=== PATIENT | female | born 1950 | race Caucasian/White ===

== ENCOUNTER → 2016-07-27 | Outpatient (CLI) | payer MEDICARE ==
[~2016-07-27] MED LIST: ATOR40TA PO; ATOR40TA16 PO; CALCCHW25 PO; CALCTAB80 PO; LOSA25TA PO; LOSA50TA PO; MULT-135 PO; OCUVTAB4 PO
--- NOTE | 2016-07-31 16:05 | RADRPT ---
EXAM DATE/TIME: 07/27/2016 00:00 [facility] COMPARISON: No previous studies available for comparison. OUTSIDE STUDY REVIEWED: Abdomen MRI dated 07/19/2016, chest CT dated 07/16/2016, and chest CT dated 09/27/2015. INDICATIONS : Request for left adrenal gland mass biopsy. FINDINGS: The outside examinations documented a 2.5 cm left adrenal gland mass that is new when compared t o the [address] The MRI imaging findings are not diagnostic of an adenoma. It demonstrates solid vascularized tissue. This could represent a primary adrenal gland mass or metastatic lesion. CONCLUSION: Prior to performing biopsy, recommend obtaining a serum or urine metanephrines to exclude the possibi lity of pheochromocytoma. An immediate hypertensive crisis can occur if these are biopsied. Once pheo chromocytoma is excluded, the patient may be scheduled for percutaneous CT-guided biopsy of the mass. Michael Raygoza MD on July 31, 2016 at 15:58 Board Certified Radiologist. This report was verified electronically.
== END ==
LOC: HRAD 11:45
PROVIDERS: ATTEND Internal Medicine Hematology & Oncology
DX: E27.8 Other specified disorders of adrenal gland (principal)
CPT/HCPCS: 76140

== ENCOUNTER 2016-08-14 08:00 | Day surgery (SDC) | payer MEDICARE ==
[2016-08-14] VITALS (7 sets, daily range): BP systolic 81–101; BP diastolic 41–66; PULSE 51–67; RESP 16–20; TEMP 97.5–97.8; O2SAT 95–100
[~2016-08-14] VITALS: Ht 165.1 cm; Wt 63.6 kg
[~2016-08-14 08:00] MED LIST changes: -ATOR40TA16 PO; -CALCTAB80 PO; -LOSA25TA PO; -MULT-135 PO
[2016-08-14] MEDS ORDERED: fentaNYL CITRATE 250 MCG/5 ML AMP ONE (08:22)
[2016-08-14] MEDS ORDERED: MIDAZOLAM HCL 5 MG/5 ML VIAL ONE (08:22)
[2016-08-14] MEDS ORDERED: MULT-135 PO (08:27)
[2016-08-14] MEDS ORDERED: OCUVTAB4 PO (08:27)
[2016-08-14] MEDS ORDERED: LOSA25TA PO (08:27)
[2016-08-14] MEDS ORDERED: CALCTAB80 PO (08:27)
[2016-08-14] MEDS ORDERED: ATOR40TA16 PO (08:27)
[2016-08-14] MEDS ORDERED: SODIUM CHLOR 0.9% 1000 ML IV SCH (08:45)
[2016-08-14] MEDS ORDERED: LIDOCAINE 1%/EPINEPHrine 1:100,000 SOLN 20 ML VIAL ONE (09:11)
--- NOTE | 2016-08-14 15:15 | RADRPT ---
EXAM DATE/TIME: 08/14/2016 09:40 [facility] COMPARISON: No previous studies available for comparison. INDICATIONS : Left adrenal mass. SEDATION TIME: 50 minutes BIOPSY SITE: Left MEDICATION(S): 1.) 4 mg midazolam (Versed) IV 2.) 225 mcg fentanyl (Sublimaze) IV DEVICE(S): 1.) 20 gauge Temno core biopsy needle MEDICAL HISTORY : Carcinoma, lung. SURGICAL HISTORY : None. ENCOUNTER: Initial ACUITY: 1 day PAIN SCORE: 0/10 LOCATION: Left upper quadrant A total of two core specimen(s) were obtained and sent to the laboratory for pathologic evaluation. PROCEDURE: 1. CT guided adrenal, left biopsy. 2. Conscious sedation with continuous EKG and oximetry monitoring. 3. EKG and oximetry remained stable throughout the procedure. Prior to the procedure informed consent was obtained. Any appropriate prior imaging studies were rev iewed. Using automated exposure control and adjustment of the mA and/or kV according to patient size, radiat ion dose was kept as low as reasonably achievable to obtain optimal diagnostic quality images. The site was prepped in a sterile fashion. Full sterile technique was used, including cap, mask, saúl rile gloves and gown and a large sterile sheet. Hand hygiene and 2% chlorhexidine and/or betadine/al cohol prep was utilized per protocol for cutaneous antisepsis. The skin and subcutaneous tissues wer e infiltrated with local anesthetic solution. With CT guidance the previously identified target was localized. Biopsy was performed using the presc ribed needle as above. Adequate hemostasis was obtained with compression at the puncture site. Follow-up CT scan reveals no hemorrhage. The patient tolerated the procedure well and there were no complications. The patient was returned to the Radiology Outpatient Unit in stable condition. CONCLUSION: Uncomplicated CT guided biopsy. Shan Coulter MD on August 14, 2016 at 15:12 Board Certified Radiologist. This report was verified electronically.
== END 2016-08-14 13:35 | disposition home or self-care (01) ==
LOC: HRAD 08:00 → HRIP 08:01 → HRAD 13:35
PROVIDERS: ATTEND Internal Medicine Hematology & Oncology
DX: C79.72 Secondary malignant neoplasm of left adrenal gland (principal); C34.90 Malignant neoplasm of unspecified part of unspecified bronchus or lung; I25.10 Atherosclerotic heart disease of native coronary artery without angina pectoris; E78.00 Pure hypercholesterolemia, unspecified; I10 Essential (primary) hypertension
CPT/HCPCS: 60699; 77012; 88305; 88341; 88342; 99152; 99153; J2250; J3010; J7030

== ENCOUNTER 2016-10-16 08:33 | Day surgery (SDC) | payer MEDICARE ==
[~2016-10-16] VITALS: Ht 162.6 cm; Wt 63.6 kg
[~2016-10-16 08:33] MED LIST changes: -ATOR40TA PO; +ATOR40TA16 PO; -CALCCHW25 PO; +CALCTAB80 PO; +LOSA25TA PO; -LOSA50TA PO; +MULT-135 PO
[2016-10-16 08:54] VITALS: BP 121/69; PULSE 56; RESP 20; TEMP 98; O2SAT 99
[2016-10-16] MEDS ORDERED: SODIUM CHLORIDE 0.9% 1000 ML IV SCH (09:15)
[2016-10-16] MEDS ORDERED: POVIDONE IODINE 5% (ANTISEPSIS KIT) 4 APPLICATIONS EACH NARE SCH (09:15)
[2016-10-16] MEDS ORDERED: ceFAZolin 2 GM PREMIX 50 ML - implanted port/tunneled catheter insertion IV SCH (09:15)
[2016-10-16] MEDS ORDERED: CHLORHEXIDINE GLUCONATE 2 % 1 PACK (2 CLOTHS) TOPICAL SCH (09:15)
[2016-10-16] MEDS ORDERED: VANCOMYCIN 1000 MG/NS 250 ML - implanted port/tunneled catheter IV SCH ×2 (09:15)
[2016-10-16 09:30] LABS: INTERNATIONAL NORMALIZED RATIO 0.9 RATIO
[2016-10-16 09:35] LABS: BASOPHIL % 1.1 % (0.0-2.0); EOSINOPHIL # 0.2 TH/MM3 (0-0.4); EOSINOPHIL % 6.6 % (0.0-4.0); HEMATOCRIT 34.7 % (35.0-46.0); HEMO FLAGS DIFF FINAL; LYMPH % 13.4 % (9.0-44.0); LYMPHOCYTE # 0.4 TH/MM3 (1.0-4.8); MEAN CELL VOLUME 90.8 FL (80.0-100.0); MEAN CORPUSCULAR HEMOGLOBIN 31.5 PG (27.0-34.0); MEAN CORPUSCULAR HGB CONC 34.6 % (32.0-36.0); MONO % 18.7 % (0.0-8.0); NEUT % 60.2 % (16.0-70.0); PLATELET COUNT 200 TH/MM3 (150-450); RED BLOOD COUNT 3.82 MIL/MM3 (4.00-5.30); RED CELL DISTRIBUTION WIDTH 14.2 % (11.6-17.2); WHITE BLOOD COUNT 3.4 TH/MM3 (4.0-11.0)
[2016-10-16] MEDS ORDERED: LIDOCAINE 1%/EPINEPHrine 1:100,000 SOLN 20 ML VIAL ONE (10:47)
[2016-10-16] MEDS ORDERED: fentaNYL CITRATE 250 MCG/5 ML AMP ONE (10:52)
[2016-10-16] MEDS ORDERED: MIDAZOLAM HCL 5 MG/5 ML VIAL ONE (10:52)
[2016-10-16 11:50] VITALS: BP 101/52; PULSE 56; RESP 16; TEMP 98.4; O2SAT 92
--- NOTE | 2016-10-16 11:50 | PD.RAD ---
Post Procedure Progress Note Pre Procedure Diagnosis: (1) Lung cancer Post Procedure Diagnosis: (1) Lung cancer Procedure Date: October 16, 2016 Supervising Radiologist: Hernandez Lima JR Proceduralist/Assist: Laly Nunez, RT(R)(CV), Saida Lagunas RT(R)() Anesthesia: Conscious Sedation Plan of Activity Patient to Unit: ROPU Patient Condition: Good See PACS Report for procedural detail/treatment Central Venous Access Device Procedure 1 Right Internal Jugular Infusaport Placement single lumen Croatian: 8 Findings: Power port in good position and functions well. OK to use. Plan OK to use. F/U in 10-14 days with IR for a site check Jr. Clarence,Hernandez Lucero MD October 16, 2016 11:50
[2016-10-16] MEDS ORDERED: SODIUM CHLORIDE 0.9% FLUSH 10 ML FLUSH IVF PRN (12:00)
[2016-10-16 12:05] VITALS: BP 92/54; PULSE 52; RESP 16; O2SAT 92
[2016-10-16 12:25] VITALS: BP 107/58; PULSE 59; RESP 16; O2SAT 97
--- NOTE | 2016-10-16 12:59 | RADRPT ---
EXAM DATE/TIME: 10/16/2016 11:32 [facility] COMPARISON: No previous studies available for comparison. INDICATIONS : Patient with history of lung cancer in need of port placement. MEDICAL HISTORY : 1.Lung cancer 2.HTN 3.Adrenal gland cancer 4.High cholesterol 5.Skin cancer 6.Angina 7.Anxiety SURGICAL HISTORY : 1.Eyelid surgery 2.Right thumb surgery 3.Right port removal/placement ENCOUNTER: Initial ACUITY: 1 month PAIN SCORE: 0/10 FLUORO TIME: 0.3 minutes IMAGE SERIES: 0 SEDATION TIME: 45 minutes ACCESS: Right internal jugular vein SEDATION: 1.) 4.5 mg midazolam (Versed) IV 2.) 225 mcg fentanyl (Sublimaze) IV Prophylactic antibiotics were administered with appropriate pre-procedure timing. Vancomycin within 2 hours of procedure, Ancef (or alternative) within 1 hour of procedure. DEVICE: 1. 8 Malian single lumen Angiodynamics Smart port [id number] PROCEDURE : 1. Continuous pulse oximetry and EKG monitoring. 2. Intravenous conscious sedation. 3. Ultrasound guidance for venous access. 4. Fluoroscopic guided implantable central venous port placement. The patient was placed supine. The neck was prepped in sterile fashion. Full sterile technique was u sed, including cap, mask, sterile gloves and gown, and a large sterile sheet. Hand hygiene and 2% ch lorhexidine Betadine was utilized per protocol for cutaneous antisepsis with appropriate dry time for site. The skin and subcutaneous tissues were infiltrated with local anesthetic solution. Under direct ultrasound guidance, central venous access was accomplished in the targeted vessel. The ultrasound images depicting access guidance were stored and saved to PACS for permanent record. A s ubcutaneous pocket was created using blunt dissection. The port was introduced to the pocket. The c atheter tubing was fed through a subcutaneous tunnel to the venotomy site. The catheter tubing was c ut to a suitable length and then was introduced through a valved Peel-Away sheath and positioned with catheter tubing tip at the cavo-atrial junction level. The pocket incision was closed with subcutic ular Vicryl suture. Steri-Strips were applied. The port was flushed and locked with heparin solutio n per protocol. Sterile dressing was applied to the site. The patient tolerated the procedure well. Conscious sedation was performed with the prescribed dosages and duration as above in the presence of an independent trained radiology nurse to assist in the monitoring of the patient. EKG and oximetry remained stable throughout the procedure. The patient tolerated the procedure well and there were no complications. The patient was sent to post anesthesia recovery in stable condition. CONCLUSION: Uncomplicated ultrasound and fluoroscopic guided implanted central venous port catheter placement as described in detail above. An 8 Malian Power port was placed. Hernandez Lima Jr., MD on October 16, 2016 at 12:56 Board Certified Radiologist. This report was verified electronically.
[2016-10-16 13:00] VITALS: BP_SYST 108; BP_SYST 123; BP_DIAS 58; BP_DIAS 72; PULSE 45; PULSE 48; RESP 18; O2SAT 98; O2SAT 99
[2016-10-16 14:00] VITALS: BP 101/63; PULSE 47; RESP 16; O2SAT 98
== END 2016-10-16 14:40 | disposition home or self-care (01) ==
LOC: HRIP 08:33 → HROP 08:33
PROVIDERS: ATTEND Internal Medicine Hematology & Oncology
DX: C34.90 Malignant neoplasm of unspecified part of unspecified bronchus or lung (principal); C79.72 Secondary malignant neoplasm of left adrenal gland; I10 Essential (primary) hypertension; E78.00 Pure hypercholesterolemia, unspecified; F41.9 Anxiety disorder, unspecified; Z85.828 Personal history of other malignant neoplasm of skin; Z85.858 Personal history of malignant neoplasm of other endocrine glands; Z88.5 Allergy status to narcotic agent
CPT/HCPCS: 36561; 76937; 77001; 85025; 85610; 85730; 99152; 99153; C1788; J0690; J1642; J2250; J3010; J3370; J7030; J7050

== ENCOUNTER 2017-11-03 19:54 | Observation (INO) | payer MEDICARE ==
[~2017-11-03] VITALS: Ht 162.6 cm; Wt 65.8 kg
[2017-11-03] VITALS (11 sets, daily range): BP systolic 90–119; BP diastolic 57–86; PULSE 107–176; RESP 18; TEMP 98.4; O2SAT 96–97
--- NOTE | 2017-11-03 20:01 | PD ---
HPI Chief Complaint: Cardiac Complaint Time Seen by Provider: 19:57 Travel History International Travel<30 days: No Contact w/Intl Traveler<30days: No Traveled to known affect area: No History of Present Illness HPI Complaint of chest pain along with palpitations. Palpitations are irregular and fast. The chest pain is pressure-like substernal nonradiating about a 3 out of 10. PCP IS MEDARDO UNDERWOOD Allergy to codeine Past medical history significant for hypertension lung cancer apparently has coronary artery disease(angina) as per chart review back in 2016, high cholesterol.... Per evaluation Dr. Rogers recorded that this patient has metastatic non-small cell Lung cancer on palliative therapy with nIVOLUMAB every 2 weeks. PFSH Past Medical History Cancer: Yes (SKIN, LUNG CANCER LEFT LOBE + LYMPH NODE ) Cardiovascular Problems: Yes (CALCIFICATIONS) Chemotherapy: Yes (IN PAST) Coronary Artery Disease: Yes Diabetes: No Endocrine: No Gastrointestinal Disorders: No Genitourinary: No Hepatitis: No Hiatal Hernia: No Hypertension: Yes Immune Disorder: No Musculoskeletal: No Neurologic: No Psychiatric: No Reproductive: No Respiratory: Yes (LUNG CANCER ) Thyroid Disease: No Menopausal: Yes Past Surgical History Abdominal Surgery: No AICD: No Body Medical Devices: NONE Cardiac Surgery: No Ear Surgery: No Endocrine Surgery: No Eye Surgery: Yes (BILATERAL UPPER BLEPH ) Genitourinary Surgery: No Gynecologic Surgery: No Joint Replacement: No Neurologic Surgery: No Oral Surgery: No Pacemaker: No Thoracic Surgery: No Other Surgery: Yes (RIGHT CHEST PORT) Social History Alcohol Use: No (2-3 MIXED DRINKS/NIGHT; 2-3 MIXED DRINKS 03/27/16) Tobacco Use: No (QUIT 2002) Substance Use: No Allergies-Medications (Allergen,Severity, Reaction): Coded Allergies: codeine (Unverified Adverse Reaction, Mild, PASSED OUT, 11/03/17) Reported Meds & Prescriptions Reported Meds & Active Scripts Active Reported Eliquis (Apixaban) 5 Mg Tab 5 Mg PO BID Preservision Areds (Multiple Vitamins W/ Minerals) 1 Tab 1 Tab PO DAILY Losartan (Losartan Potassium) 25 Mg Tab 25 Mg PO DAILY Calcium 1000 + D (Calcium Carbonate-Cholecalciferol) 1,000-800 Mg-Unit Tab 1 Tab PO Atorvastatin (Atorvastatin Calcium) 40 Mg Tab 40 Mg PO HS Physical Exam Narrative GENERAL: SKIN: Warm and dry. HEAD: Atraumatic. Normocephalic. EYES: Pupils equal and round. No scleral icterus. No injection or drainage. ENT: No nasal bleeding or discharge. Mucous membranes pink and moist. NECK: Trachea midline. No JVD. CARDIOVASCULAR: Tachycardic rate, irregularly irregular rhythm RESPIRATORY: No accessory muscle use. Clear to auscultation. Breath sounds equal bilaterally. GASTROINTESTINAL: Abdomen soft, non-tender, nondistended. MUSCULOSKELETAL: Extremities without clubbing, cyanosis, or edema. No obvious deformities. NEUROLOGICAL: Awake and alert. No obvious cranial nerve deficits. Motor grossly within normal limits. Five out of 5 muscle strength in the arms and legs. Normal speech. PSYCHIATRIC: Appropriate mood and affect; insight and judgment normal. Data Data Last Documented VS Vital Signs Date Time Temp Pulse Resp B/P (MAP) Pulse Ox O2 Delivery O2 Flow Rate FiO2 11/03/17 22:00 126 18 110/86 (94) 97 Room Air 11/03/17 20:15 98.4 Orders Orders Electrocardiogram (11/03/17 20:02) B-Type Natriuretic Peptide (11/03/17 20:02) Ckmb (Isoenzyme) Profile (11/03/17 20:02) Complete Blood Count With Diff (11/03/17 20:02) Comprehensive Metabolic Panel (11/03/17 20:02) Magnesium (Mg) (11/03/17 20:02) Prothrombin Time / Inr (Pt) (11/03/17 20:02) Act Partial Throm Time (Ptt) (11/03/17 20:02) Troponin I (11/03/17 20:02) Lipase (11/03/17 20:02) Chest, Single Ap (11/03/17 20:02) Ecg Monitoring (11/03/17 20:02) Iv Access Insert/Monitor (11/03/17 20:02) Oximetry (11/03/17 20:02) Oxygen Administration (11/03/17 20:02) Sodium Chloride 0.9% Flush (Ns Flush) (11/03/17 20:15) Metoprolol Tartrate Inj (Lopressor Inj) (11/03/17 20:15) Dextrose 5% In Wate... W/Amiodarone Inj (11/03/17 21:04) Labs Laboratory Tests Test 11/03/17 20:05 White Blood Count 4.3 TH/MM3 Red Blood Count 4.23 MIL/MM3 Hemoglobin 12.5 GM/DL Hematocrit 38.0 % Mean Corpuscular Volume 89.8 FL Mean Corpuscular Hemoglobin 29.5 PG Mean Corpuscular Hemoglobin Concent 32.8 % Red Cell Distribution Width 12.3 % Platelet Count 220 TH/MM3 Mean Platelet Volume 6.9 FL Neutrophils (%) (Auto) 50.9 % Lymphocytes (%) (Auto) 25.7 % Monocytes (%) (Auto) 19.1 % Eosinophils (%) (Auto) 3.7 % Basophils (%) (Auto) 0.6 % Neutrophils # (Auto) 2.2 TH/MM3 Lymphocytes # (Auto) 1.1 TH/MM3 Monocytes # (Auto) 0.8 TH/MM3 Eosinophils # (Auto) 0.2 TH/MM3 Basophils # (Auto) 0.0 TH/MM3 CBC Comment DIFF FINAL Differential Comment Prothrombin Time 10.7 SEC Prothromb Time International Ratio 1.1 RATIO Activated Partial Thromboplast Time 29.5 SEC Blood Urea Nitrogen 21 MG/DL Creatinine 0.79 MG/DL Random Glucose 81 MG/DL Total Protein 7.4 GM/DL Albumin 3.5 GM/DL Calcium Level 9.2 MG/DL Magnesium Level 1.7 MG/DL Alkaline Phosphatase 109 U/L Aspartate Amino Transf (AST/SGOT) 22 U/L Alanine Aminotransferase (ALT/SGPT) 27 U/L Total Bilirubin 0.2 MG/DL Sodium Level 141 MEQ/L Potassium Level 3.5 MEQ/L Chloride Level 107 MEQ/L Carbon Dioxide Level 26.7 MEQ/L Anion Gap 7 MEQ/L Estimat Glomerular Filtration Rate 72 ML/MIN Total Creatine Kinase 40 U/L Troponin I LESS THAN 0.02 NG/ML B-Type Natriuretic Peptide 77 PG/ML Lipase 80 U/L MDM Medical Decision Making Medical Screen Exam Complete: Yes Emergency Medical Condition: Yes Medical Record Reviewed: Yes Interpretation(s) EKG shows atrial fib relation with RVR, rate approximately in the 160s, LVH changes noted, no ST elevation VA pattern noted. ST depressions noted inferior laterally Differential Diagnosis Pneumonia versus pleural effusion versus pulmonary edema versus STEMI versus non -STEMI versus dehydration versus anemia Narrative Course CBC is within normal limits and without any evidence of anemia, leukocytosis or left shift. Normal platelet count Coagulation profile is within normal limits Electrolytes are within normal limits, normal kidney liver and pancreatic functions. First set of cardiac enzymes negative Diagnosis Primary Impression: REFRACTORY Atrial FIBRILLATION WITH RVR Admitting Information Admitting Physician Requests: Observation Shahab Villegas MD Nov 03, 2017 20:01
[2017-11-03 20:12] LABS: AUTOMATED NEUTROPHIL # 2.2 TH/MM3 (1.8-7.7); BASOPHIL % 0.6 % (0.0-2.0); EOSINOPHIL # 0.2 TH/MM3 (0-0.4); EOSINOPHIL % 3.7 % (0.0-4.0); HEMOGLOBIN 12.5 GM/DL (11.6-15.3); LYMPH % 25.7 % (9.0-44.0); LYMPHOCYTE # 1.1 TH/MM3 (1.0-4.8); MEAN CELL VOLUME 89.8 FL (80.0-100.0); MEAN CORPUSCULAR HEMOGLOBIN 29.5 PG (27.0-34.0); MEAN CORPUSCULAR HGB CONC 32.8 % (32.0-36.0); MEAN PLATELET VOLUME 6.9 FL (7.0-11.0); MONO % 19.1 % (0.0-8.0); MONOCYTE # 0.8 TH/MM3 (0-0.9); NEUT % 50.9 % (16.0-70.0); PLATELET COUNT 220 TH/MM3 (150-450); RED BLOOD COUNT 4.23 MIL/MM3 (4.00-5.30); RED CELL DISTRIBUTION WIDTH 12.3 % (11.6-17.2); WHITE BLOOD COUNT 4.3 TH/MM3 (4.0-11.0)
[2017-11-03] MEDS: METOPROLOL TARTRATE 5 MG/5 ML VIAL IVS SCH ×3 (20:12→20:34)
[2017-11-03] MEDS ORDERED: SODIUM CHLORIDE 0.9% FLUSH 10 ML FLUSH IVF PRN ×2 (20:15→22:30)
[2017-11-03 20:18] LABS: CHLORIDE 107 MEQ/L (98-107); SODIUM (NA) 141 MEQ/L (136-145)
[2017-11-03 20:22] LABS: CALCIUM 9.2 MG/DL (8.5-10.1)
[2017-11-03 20:23] LABS: ALBUMIN 3.5 GM/DL (3.4-5.0); BICARBONATE 26.7 MEQ/L (21.0-32.0); BLOOD UREA NITROGEN 21 MG/DL (7-18); GLUCOSE,RANDOM 81 MG/DL (74-106); MAGNESIUM 1.7 MG/DL (1.5-2.5)
[2017-11-03 20:24] LABS: INTERNATIONAL NORMALIZED RATIO 1.1 RATIO; PROTHROMBIN TIME - PATIENT 10.7 SEC (9.8-11.6)
[2017-11-03 20:25] LABS: ALT (GPT) 27 U/L (10-53); AST (GOT) 22 U/L (15-37); CREATININE 0.79 MG/DL (0.50-1.00); GLOMERULAR FILTRATION RATE 72 ML/MIN (>89)
[2017-11-03 20:27] LABS: TOTAL BILIRUBIN ADULT 0.2 MG/DL (0.2-1.0); TOTAL PROTEIN 7.4 GM/DL (6.4-8.2)
[2017-11-03 20:28] LABS: ALKALINE PHOSPHATASE 109 U/L (45-117)
[2017-11-03 20:31] LABS: TROPONIN I LESS THAN 0.02 NG/ML (0.02-0.05)
[2017-11-03] MEDS ORDERED: APIX5TAB PO (20:31)
[2017-11-03] MEDS ORDERED: AMIODARONE INJ 150 MG in DEXTROSE 5% IN WATER 100ML INJ 97 ML IV ONE ×2 (21:04)
--- NOTE | 2017-11-03 21:23 | RADRPT ---
EXAM DATE: 11/03/2017 9:12 PM EDT AGE/SEX: 67 years / Female INDICATIONS: Heart palpitations CLINICAL DATA: This is the patient's initial encounter. Patient reports that signs and symptoms have been present for 1 day and indicates a pain score of 2/10. MEDICAL/SURGICAL HISTORY: Carcinoma, lung. Carcinoma, bone. . Infusaport COMPARISON: [facility] [place] NEEDLE BIOPSY LUNG, LEFT, 02/15/2014. . FINDINGS: Right internal jugular [id number] has its tip in the superior vena cava. No pneumothorax is noted. The heart and mucous structures are stable. The lungs are clear. CONCLUSION: 1. No focal infiltrate or pulmonary vascular congestion. 2. No significant change compared to previous examination. Electronically signed by: Rony Norris MD 11/03/2017 9:22 PM EDT
[2017-11-03] MEDS ORDERED: AMIODARONE INJ 450 MG in DEXTROSE 5% IN WATE(EXCEL) INJ 241 ML IV SCH ×2 (22:35)
[2017-11-03] MEDS: AMIODARONE INJ 450 MG in SODIUM CHLOR 0.9% 250 ML INJ 241 ML IV SCH (23:06)
[2017-11-03 23:15] LABS: TROPONIN I LESS THAN 0.02 NG/ML (0.02-0.05)
[2017-11-04] VITALS (30 sets, daily range): BP systolic 93–132; BP diastolic 60–92; PULSE 52–130; RESP 9–31; TEMP 97.6–98.2; O2SAT 94–97
[2017-11-04] MEDS ORDERED: CHLORHEXIDINE GLUCONATE 2 % 1 PACK (2 CLOTHS)(extra cloths) TOPICAL PRN (00:15)
[2017-11-04] MEDS ORDERED: CHLORHEXIDINE GLUCONATE 2 % 1 PACK (2 CLOTHS)(taper/protocol) TOPICAL SCH (04:00)
[2017-11-04 05:00] LABS: TROPONIN I LESS THAN 0.02 NG/ML (0.02-0.05)
[2017-11-04] MEDS ORDERED: DILTIAZEM HCL 60 MG TAB PO SCH (06:15)
--- NOTE | 2017-11-04 07:31 | MH ---
cc: Sunny Bassett MD DATE OF ADMISSION: 11/03/2017 DATE OF DICTATION AND EXAM: 11/04/2017 ADMISSION DIAGNOSES: 1. Atrial fibrillation with rapid ventricular response. 2. Hypertension. 3. Hyperlipidemia. 4. History of metastatic adenocarcinoma of the lung. 5. History of colon polyps. PERTINENT HISTORY: This is a pleasant 67-year-old white female who, last week, was diagnosed by her customer care associate, Dr. Oshea, as having atrial fibrillation and put on Eliquis. She has been having some palpitations. She came to the ER last night when she had palpitations and her heart was beating fast. She has an gagandeep on her phone that monitors her pulse rate, and it was going into the 170s and irregular. She denies any chest pain to me, but in the ER, she did mention to the ER physician that she had some chest-like pressure, but it seemed to be mainly when her heart rate was going fast. She denies any chest pain now. No shortness of breath. She was not put on any rate-controlling medication by her customer care associate last week. She has no current symptoms or complaints. PAST MEDICAL HISTORY: She is under treatment for hypertension and hyperlipidemia. She is followed by Dr. Rogers for cancer of the lung that has metastasized; apparently it has previously metastasized to the adrenal gland on the left side, and she had radiation of that. She has had metastasis to lymph nodes and also apparently to bone. She was originally diagnosed with lung cancer of the left upper lobe, and when a biopsy was done on 02/15/2014, she had some chemo and radiation therapy initially. She has been on maintenance nivolumab. She denies any history of heart attack, angina, stroke, seizures. No asthma, TB, COPD. No liver or kidney disease. She has had colon polyps removed. She has had a duodenal ulcer in the past and has had gastritis. PAST SURGICAL HISTORY: She has had bilateral blepharoplasty. She had colonoscopies done. She has had some basal cell carcinomas removed from the skin. ALLERGIES: CODEINE. MEDICATIONS: She is on Eliquis 5 mg twice a day, losartan 25 mg a day, atorvastatin 40 mg a day. She takes calcium plus D. She is on AREDS for her eyes. FAMILY HISTORY: Her mother is living at 91, has had a prior heart attack, hypertension, hyperlipidemia. She did not really know her father. SOCIAL HISTORY: She is single, never . She has 2-3 drinks a day, either vodka or wine. She quit smoking in 2003, smoked a pack a day for 30 years. She is retired, used to work in IT. REVIEW OF SYSTEMS: GENERAL: No fever or chills. HEENT: No double vision. No sore throat. She has had a little slight runny nose recently. CARDIOVASCULAR: As mentioned. PULMONARY: No cough, hemoptysis or wheezing. GASTROINTESTINAL: No nausea, vomiting, abdominal pain, constipation, or diarrhea. No rectal bleeding. GENITOURINARY: No dysuria, urgency, frequency or hematuria. EXTREMITIES: Without swelling. MUSCULOSKELETAL: Without complaints. NEUROLOGIC: No weakness, numbness, tingling in her arms and legs. PHYSICAL EXAMINATION: GENERAL: Pleasant white female in no acute distress. VITAL SIGNS: Her heart rate on the monitor has been ranging from about 105-120, respirations 16, BP 119/77, oximetry 96%. HEENT: Pupils are equal. Sclerae nonicteric. Nose without lesion. Mouth without inflammation or lesion. NECK: Without bruit. No JVD. CARDIOVASCULAR: Irregularly irregular rhythm with just slight tachycardia. LUNGS: Clear. ABDOMEN: Soft, nontender. No masses. EXTREMITIES: No edema. Pulses are palpated in the feet. SKIN: Negative. NEUROLOGIC: Oriented x3. Cranial nerves, motor and sensory intact. LABORATORY DATA: White count is 4.3, hemoglobin 12.5, platelets are 220,000. Her troponins have been less than 0.02 on 3 checks. Her CK was normal. Her sodium was 141, potassium 3.5, BUN 21, creatinine 0.79, GFR 72, glucose 81. AST, ALT, bilirubin, calcium and magnesium were normal. Lipase normal. Albumin and total protein normal. Chest x-ray showed no infiltrate or pulmonary vascular congestion. bus monitor shows atrial fibrillation. ASSESSMENT: As noted. PLAN: She will be continued on Eliquis. She was put on some oral diltiazem 60 mg q. 6 hours. She was originally given amiodarone and metoprolol in the ED, and it was an amiodarone drip, which she is still on. Cardiology has been consulted, and pending their evaluation, if her rate can be controlled, then she may be able to go home later today. We will go ahead and order a 2-D echo on her. She will be maintained on her losartan and atorvastatin. MD ANGEL Lewis/LETITIA , 06:54 AM , 07:30 AM
[2017-11-04] MEDS ORDERED: APIXABAN 5 MG TABLET PO SCH ×2 (09:00)
[2017-11-04] MEDS ORDERED: MULTIVITAMIN-OPHTHALMIC 1 TAB PO SCH (09:00)
[2017-11-04] MEDS ORDERED: LOSARTAN 25 MG TAB PO SCH (09:00)
--- NOTE | 2017-11-04 09:51 | EKG ---
Date Performed: 11/03/2017 Time Performed: 20:01:52 PTAGE: 67 years EKG: ATRIAL FIBRILLATION WITH RAPID VENTRICULAR RESPONSE ST DEVIATION AND MODERATE T-WAVE ABNORM ALITY, CONSIDER INFERIOR ISCHEMIA Compared to previous tracing atrial fibrillation with rapid v. resp onse has replaced Sinus rhythm ABNORMAL ECG PREVIOUS TRACING : 02/11/2007 08.24 DOCTOR: Goldy Echeverria Interpretating Date/Time 11/04/2017 09:49:45
[2017-11-04 10:19] LABS: TROPONIN I LESS THAN 0.02 NG/ML (0.02-0.05)
--- NOTE | 2017-11-04 11:11 | ECHRPT ---
Indication: ATRIAL FIB/FLUTTER CONCLUSIONS Normal left ventricular size. Wall thickness is normal. Normal wall motion. The left ventricular systolic function normal with an estimated ejection fraction in the range of 5 0-55%. There is trace tricuspid valve regurgitation. The estimated pulmonary arterial pressure is 33 mmHg. BP: 119 / 77 HR: 106 Rhythm: Atrial fibrillation, Atrial flut ter MEASUREMENTS (Male / Female) Normal Values Technical Quality:Fair 2D ECHO LV Diastolic Diameter PLAX 4.6 cm 4.2 - 5.9 / 3.9 - 5.3 cm LV Systolic Diameter PLAX 3.6 cm IVS Diastolic Thickness 0.9 cm 0.6 - 1.0 / 0.6 - 0.9 cm LVPW Diastolic Thickness 0.9 cm 0.6 - 1.0 / 0.6 - 0.9 cm LV Relative Wall Thickness 0.4 RV Internal Dim ED PLAX 2.8 cm LVOT Diameter 1.8 cm Aortic Root Diameter 3.0 cm LA Systolic Diameter LX 2.9 cm 3.0 - 4.0 / 2.7 - 3.8 cm M-MODE AV Cusp Separation MM 1.7 cm DOPPLER AV Peak Velocity 96.5 cm/s AV Peak Gradient 3.7 mmHg AV Mean Gradient 2.0 mmHg AV Velocity Time Integral 19.3 cm LVOT Peak Velocity 75.9 cm/s LVOT Peak Gradient 2.3 mmHg LVOT Velocity Time Integral 15.7 cm LVOT Cardiac Index 2441.7 cm/minm AV Area Cont Eq vti 2.1 cm AV Area Cont Eq pk 2.0 cm Mitral E Point Velocity 77.0 cm/s Mitral A Point Velocity 66.6 cm/s Mitral E to A Ratio 1.2 LV E' Lateral Velocity 8.8 cm/s Mitral E to LV E' Lateral Ratio 8.8 LV E' Septal Velocity 5.9 cm/s Mitral E to LV E' Septal Ratio 13.2 TR Peak Velocity 243.0 cm/s TR Peak Gradient 23.6 mmHg Right Atrial Pressure 10.0 mmHg Pulmonary Artery Systolic Pressu 33.6 mmHg Right Ventricular Systolic Press 33.6 mmHg PV Peak Velocity 67.7 cm/s PV Peak Gradient 1.8 mmHg FINDINGS LEFT VENTRICLE Normal left ventricular size. Wall thickness is normal. Normal wall motion. The left ventricular systolic function normal with an estimated ejection fraction in the range of 5 0-55%. RIGHT VENTRICLE Normal right ventricular size and systolic function. LEFT ATRIUM The left atrial size is normal. RIGHT ATRIUM The right atrial size is normal. ATRIAL SEPTUM No atrial level shunt is demonstrated by color flow Doppler interrogation. AORTA The aortic root and proximal ascending aorta are not well visualized. MITRAL VALVE Trace mitral valve regurgitation. AORTIC VALVE Trileaflet aortic valve. No aortic valve stenosis or regurgitation. TRICUSPID VALVE There is trace tricuspid valve regurgitation. The estimated pulmonary arterial pressure is 33 mmHg. PULMONARY VALVE No pulmonary valve regurgitation or stenosis. VESSELS The inferior vena cava is normal in size. PERICARDIUM A prominent epicardial fat pad is present. No pericardial effusion. Peng Tobar MD (Electronically Signed) Final Date:04 November 2017 11:09
[2017-11-04] MEDS: AMIODARONE INJ 450 MG in SODIUM CHLOR 0.9% 250 ML INJ 241 ML IV SCH (11:37)
--- NOTE | 2017-11-04 12:18 | EKG ---
Date Performed: 11/04/2017 Time Performed: 04:31:07 PTAGE: 67 years EKG: ATRIAL FIBRILLATION WITH RAPID VENTRICULAR RESPONSE NONSPECIFIC ST & T-WAVE ABNORMALITY ABN ORMAL ECG PREVIOUS TRACING : 11/03/2017 20.01 Since the previous tracing, no significant change noted DOCTOR: Goldy Echeverria Interpretating Date/Time 11/04/2017 12:16:40
--- NOTE | 2017-11-04 13:04 | MB ---
cc: Florencia Hugo MD DATE: 11/04/2017 REASON FOR CONSULTATION: Atrial fibrillation. HISTORY OF PRESENT ILLNESS: Ms. Jones is a 67-year-old patient of my partner, Dr. Oshea. She was just diagnosed with atrial fibrillation last week. She had an episode last evening that brought her to the emergency room. The patient was placed on amiodarone and has subsequently converted back this morning. She is asymptomatic. ALLERGIES: CODEINE. OUTPATIENT MEDICATIONS: Include: 1. Eliquis. 2. PreserVision. 3. Losartan. 4. Calcium. 5. Atorvastatin. PAST MEDICAL HISTORY: Significant for metastatic non-small cell lung cancer, on palliative therapy, hypertension, hyperlipidemia, coronary artery disease with calcifications by CT. SOCIAL HISTORY: The patient is a former smoker. FAMILY HISTORY: Noncontributory. PHYSICAL EXAMINATION: CURRENT VITAL SIGNS: 98.1, 54, 16, 104/62. GENERAL: She is a well-appearing female, who is in no apparent distress. NECK: Free from JVD. LUNGS: Bilaterally clear to auscultation. CARDIOVASCULAR: She has a normal S1 and S2. No rubs or gallops were appreciated. ABDOMEN: Soft. EXTREMITIES: Free from edema. LABORATORY DATA: Echocardiogram shows normal LV function with an EF of 50-55%. EKG does show atrial fibrillation with rapid ventricular rate. IMPRESSION: Atrial fibrillation - the patient does have a history of the same. She is on Eliquis for anticoagulation. She has been placed on Cardizem here. I am reluctant to continue this as an outpatient as she reports a heart rate in the 50s and 60s typically. Indeed some of the oncology progress notes do show a heart rate of 50 prior to any AV rodriguez blockers. Thus, at this point, I am going to discontinue the IV amiodarone and continue her on amiodarone p.o. I am going to discontinue the p.o. Cardizem that was started here. It is reasonable for her to be discharged to followup with Dr. Oshea. Florencia Hugo MD BAB/TL , 12:44 PM , 01:03 PM
[2017-11-04] MEDS ORDERED: AMIO200T PO (13:51)
[2017-11-04] MEDS ORDERED: ATORVASTATIN 40 MG TAB PO SCH (21:00)
[2017-11-05] MEDS ORDERED: AMIODARONE 200 MG TAB PO SCH (09:00)
--- NOTE | 2017-11-05 15:28 | EKG ---
Date Performed: 11/04/2017 Time Performed: 09:36:21 PTAGE: 67 years EKG: SINUS BRADYCARDIA BORDERLINE ECG PREVIOUS TRACING : 11/04/2017 04.31 Nonspecific anterior T-wave changes. Since the prior tracin g ,the rapid atrial fibrillation has resolved and has been replaced by Sinus rhythm . There has been an overall improvement in the previously noted diffuse ST-T wave changes. DOCTOR: Elissa Ramos Interpretating Date/Time 11/05/2017 15:25:54
== END 2017-11-04 14:40 | disposition home or self-care (01) ==
LOC: PHED 19:54 → PHEDA 22:32 → PHICU 23:47
PROVIDERS: ADMIT Family Medicine; ATTEND Family Medicine
DX: I48.91 Unspecified atrial fibrillation (principal); R07.89 Other chest pain; I10 Essential (primary) hypertension; E78.5 Hyperlipidemia, unspecified; I25.10 Atherosclerotic heart disease of native coronary artery without angina pectoris; Z85.118 Personal history of other malignant neoplasm of bronchus and lung; Z87.891 Personal history of nicotine dependence; Z86.010 Personal history of colon polyps; Z79.01 Long term (current) use of anticoagulants; Z87.11 Personal history of peptic ulcer disease
CPT/HCPCS: 71045; 80053; 82550; 83690; 83735; 83880; 84484; 85025; 85610; 85730; 87641; 93005; 93306; 96365; 96366; 96375; 99285; G0378; J0282; J7050

== ENCOUNTER 2017-11-11 07:57 | Inpatient (IN) | payer MEDICARE ==
[2017-11-11] VITALS (19 sets, daily range): BP systolic 83–119; BP diastolic 50–83; PULSE 55–171; RESP 16–18; TEMP 97.4–98; O2SAT 95–99
[~2017-11-11] VITALS: Ht 162.6 cm; Wt 68.0 kg
[~2017-11-11 07:57] MED LIST changes: +AMIO200T PO; +APIX5TAB PO; -MULT-135 PO
--- NOTE | 2017-11-11 08:20 | PD ---
HPI Chief Complaint: Cardiac Complaint Time Seen by Provider: 08:02 Travel History International Travel<30 days: No Contact w/Intl Traveler<30days: No Traveled to known affect area: No History of Present Illness HPI This 67-year-old female is complaining of palpitations. He was diagnosed as having atrial fibrillation a couple of weeks ago. She was started on Eliquis. She was admitted to the hospital last week with atrial fibrillation with a rapid rate. She was given intravenous amiodarone and oral oral diltiazem. She converted to sinus rhythm and was discharged on oral amiodarone 200 mg once a day she has been doing well until about 6:00 this morning. She noted some palpitations and felt weak in the shower. She did not have chest pain or shortness of breath. She has not taken her amiodarone yet today. She checked her heart rate and is going at 160-170. She is scheduled for an ablation next week with Dr. Villalta. She has no history of coronary artery disease. She has been a patient with Dr. Oshea for follow-up because her mother had quite severe coronary artery disease. She does have a history of lung cancer for which she has been treated for about 4 years. PFSH Past Medical History Hx Anticoagulant Therapy: Yes (Eliquis) Cancer: Yes (SKIN, LUNG CANCER LEFT LOBE + LYMPH NODE ) Cardiovascular Problems: Yes Chemotherapy: Yes Coronary Artery Disease: Yes Diabetes: No Endocrine: No Gastrointestinal Disorders: No Genitourinary: No Hepatitis: No Hiatal Hernia: No Hypertension: Yes Immune Disorder: No Musculoskeletal: No Neurologic: No Psychiatric: No Reproductive: No Respiratory: Yes (LUNG CANCER ) Thyroid Disease: No ?: Not Menopausal: Yes Past Surgical History Abdominal Surgery: No AICD: No Body Medical Devices: NONE Cardiac Surgery: No Ear Surgery: No Endocrine Surgery: No Eye Surgery: Yes (BILATERAL UPPER BLEPH ) Genitourinary Surgery: No Gynecologic Surgery: No Joint Replacement: No Neurologic Surgery: No Oral Surgery: No Pacemaker: No Thoracic Surgery: No Other Surgery: Yes (RIGHT CHEST PORT and removal) Social History Alcohol Use: No (2-3 MIXED DRINKS/NIGHT; 2-3 MIXED DRINKS 03/27/16) Tobacco Use: No (QUIT 2002) Substance Use: No Allergies-Medications (Allergen,Severity, Reaction): Coded Allergies: codeine (Verified Adverse Reaction, Mild, PASSED OUT, 11/11/17) Reported Meds & Prescriptions Reported Meds & Active Scripts Active Amiodarone (Amiodarone HCl) 200 Mg Tab 200 Mg PO DAILY Reported Eliquis (Apixaban) 5 Mg Tab 5 Mg PO BID Preservision Areds (Multiple Vitamins W/ Minerals) 1 Tab 1 Tab PO DAILY Losartan (Losartan Potassium) 25 Mg Tab 25 Mg PO DAILY Calcium 1000 + D (Calcium Carbonate-Cholecalciferol) 1,000-800 Mg-Unit Tab 1 Tab PO Atorvastatin (Atorvastatin Calcium) 40 Mg Tab 40 Mg PO HS Review of Systems Except as stated in HPI: all other systems reviewed are Neg Physical Exam Narrative GENERAL: Well-developed female SKIN: Focused skin assessment warm/dry. HEAD: Atraumatic. Normocephalic. EYES: Pupils equal and round. No scleral icterus. No injection or drainage. ENT: No nasal bleeding or discharge. Mucous membranes pink and moist. NECK: Trachea midline. No JVD. CARDIOVASCULAR: Rapid irregular rate and rhythm. No murmur appreciated. RESPIRATORY: No accessory muscle use. Clear to auscultation. Breath sounds equal bilaterally. GASTROINTESTINAL: Abdomen soft, non-tender, nondistended. Hepatic and splenic margins not palpable. MUSCULOSKELETAL: No obvious deformities. No clubbing. No cyanosis. No edema. NEUROLOGICAL: Awake and alert. No obvious cranial nerve deficits. Motor grossly within normal limits. Normal speech. PSYCHIATRIC: Appropriate mood and affect; insight and judgment normal. Data Data Last Documented VS Vital Signs Date Time Temp Pulse Resp B/P (MAP) Pulse Ox O2 Delivery O2 Flow Rate FiO2 11/11/17 08:34 150 18 95/75 (82) 98 Room Air 11/11/17 08:05 97.5 Orders Orders Complete Blood Count With Diff (11/11/17 08:13) Comprehensive Metabolic Panel (11/11/17 08:13) Troponin I (11/11/17 08:13) Magnesium (Mg) (11/11/17 08:13) Prothrombin Time / Inr (Pt) (11/11/17 08:20) Act Partial Throm Time (Ptt) (11/11/17 08:20) Chest, Single Ap (11/11/17 08:20) Labs Laboratory Tests Test 11/11/17 08:14 Blood Urea Nitrogen 16 MG/DL Creatinine 0.89 MG/DL Random Glucose 138 MG/DL Calcium Level 9.5 MG/DL Magnesium Level 1.7 MG/DL Aspartate Amino Transf (AST/SGOT) 17 U/L Alanine Aminotransferase (ALT/SGPT) 28 U/L Sodium Level 137 MEQ/L Potassium Level 3.7 MEQ/L Chloride Level 104 MEQ/L Carbon Dioxide Level 23.0 MEQ/L Anion Gap 10 MEQ/L Estimat Glomerular Filtration Rate 63 ML/MIN MDM Medical Decision Making Medical Screen Exam Complete: Yes Emergency Medical Condition: Yes Medical Record Reviewed: Yes Differential Diagnosis Differential includes rapid atrial fibrillation, dysrhythmia Narrative Course EKG shows atrial fibrillation with a rapid ventricular response at a rate of 154. There is nonspecific ST-T wave abnormality. Patient has had a complicated course. She is currently on amiodarone and cardiology was reluctant to give Cardizem as she has had some bradycardia in the past. I have spoken to her rn surgery Dr. Oshea who in turn has spoken with Dr. Villalta. There had been plans for ablation next week but this will be moved up to today as she has not done with well with medical treatment Diagnosis Primary Impression: Atrial fibrillation with RVR Admitting Information Admitting Physician Requests: Admit Eliseo Garcia MD Nov 11, 2017 08:20
[2017-11-11 08:31] LABS: CHLORIDE 104 MEQ/L (98-107); SODIUM (NA) 137 MEQ/L (136-145)
[2017-11-11 08:34] LABS: CALCIUM 9.5 MG/DL (8.5-10.1)
[2017-11-11 08:35] LABS: BLOOD UREA NITROGEN 16 MG/DL (7-18); GLUCOSE,RANDOM 138 MG/DL (74-106); MAGNESIUM 1.7 MG/DL (1.5-2.5)
[2017-11-11 08:37] LABS: ALT (GPT) 28 U/L (10-53); AST (GOT) 17 U/L (15-37)
[2017-11-11 08:38] LABS: CREATININE 0.89 MG/DL (0.50-1.00); GLOMERULAR FILTRATION RATE 63 ML/MIN (>89)
[2017-11-11 08:39] LABS: TOTAL BILIRUBIN ADULT 0.4 MG/DL (0.2-1.0); TOTAL PROTEIN 7.7 GM/DL (6.4-8.2)
[2017-11-11 08:40] LABS: ALKALINE PHOSPHATASE 114 U/L (45-117)
[2017-11-11 08:43] LABS: TROPONIN I LESS THAN 0.02 NG/ML (0.02-0.05)
[2017-11-11 08:48] LABS: HEMOGLOBIN 12.8 GM/DL (11.6-15.3); MEAN CELL VOLUME 90.6 FL (80.0-100.0); MEAN CORPUSCULAR HEMOGLOBIN 30.4 PG (27.0-34.0); MEAN CORPUSCULAR HGB CONC 33.5 % (32.0-36.0); PLATELET COUNT 327 TH/MM3 (150-450); RED BLOOD COUNT 4.19 MIL/MM3 (4.00-5.30); RED CELL DISTRIBUTION WIDTH 12.2 % (11.6-17.2); WHITE BLOOD COUNT 6.2 TH/MM3 (4.0-11.0)
[2017-11-11 08:50] LABS: PROTHROMBIN TIME - PATIENT 10.4 SEC (9.8-11.6)
[2017-11-11 08:52] LABS: AUTOMATED NEUTROPHIL # 4.4 TH/MM3 (1.8-7.7); BASOPHIL % 0.9 % (0.0-2.0); EOSINOPHIL % 1.8 % (0.0-4.0); LYMPHOCYTE # 0.9 TH/MM3 (1.0-4.8); MONO % 11.5 % (0.0-8.0); MONOCYTE # 0.7 TH/MM3 (0-0.9); NEUT % 71.8 % (16.0-70.0)
[2017-11-11 08:53] LABS: BASOPHIL # 0.1 TH/MM3 (0-0.2); EOSINOPHIL # 0.1 TH/MM3 (0-0.4)
[2017-11-11] MEDS ORDERED: CETI-1 PO (09:10)
[2017-11-11] MEDS ORDERED: SODIUM CHLOR 0.9% 1000 ML INJ 1,000 ML IV ONE (09:15)
--- NOTE | 2017-11-11 09:26 | RADRPT ---
EXAM DATE: 11/11/2017 9:11 AM EDT AGE/SEX: 67 years / Female INDICATIONS: Heart Palpitations CLINICAL DATA: This is the patient's initial encounter. Patient reports that signs and symptoms have been present for 2 weeks and indicates a pain score of 0/10. MEDICAL/SURGICAL HISTORY: Carcinoma, lung. Carcinoma, bone. Port placement for Chemo . COMPARISON: [facility], CHEST SINGLE AP, 11/03/2017. . FINDINGS: 2 portable frontal views of the chest demonstrate the lungs to be symmetrically aerated without evide nce of mass, infiltrate or effusion. The cardiomediastinal contours are unremarkable. Osseous struc tures are intact. A Port-A-Cath overlies the right chest. CONCLUSION: No acute cardiopulmonary disease. Electronically signed by: Hernandez Lima MD 11/11/2017 9:24 AM EDT
[2017-11-11] MEDS: SODIUM CHLORID 0.9% 500 ML INJ 500 ML IV SCH (11:15)
[2017-11-11] MEDS: LORazepam 1 MG TAB SL SCH ×2 (11:28→12:10)
[2017-11-11] MEDS ORDERED: SODIUM CHLORID 0.9% 500 ML IV PRN (11:30)
[2017-11-11] MEDS ORDERED: POVIDONE IODINE 5% (ANTISEPSIS KIT) 4 APPLICATIONS EACH NARE PRN (11:30)
[2017-11-11] MEDS ORDERED: METOPROLOL TARTRATE 25 MG TAB PO PRN (11:30)
[2017-11-11] MEDS ORDERED: LACTATED RINGER'S 1000 ML IV PRN (11:30)
[2017-11-11] MEDS ORDERED: CHLORHEXIDINE GLUCONATE 2 % 1 PACK (2 CLOTHS) TOPICAL PRN (11:30)
[2017-11-11] MEDS ORDERED: AMIODARONE 200 MG TAB PO ONE (12:00)
[2017-11-11] MEDS ORDERED: HEPARIN SODIUM - IV 10,000 UNITS/10 ML VIAL ONE (15:33)
[2017-11-11] MEDS ORDERED: HEPARIN-NS/PF INJ 1,500 ML ONE (15:33)
[2017-11-11] MEDS ORDERED: ENOXAPARIN SODIUM 60 MG/0.6 ML SYRINGE SQ ONE (18:00)
--- NOTE | 2017-11-11 18:39 | MB ---
cc: Carlita Vlilalta MD, Wagid F MD DATE: 11/11/2017 REASON FOR CONSULTATION: Atrial fibrillation with fast ventricular response. HISTORY OF PRESENT ILLNESS: Mrs. Jones is a 67-year-old female with history of atrial fibrillation, multiple emergency room visits,recently discharged on 11/02/2017, previously seen at my office, re-admitted due to atrial fibrillation, unable to control with medication. She was put on amiodarone. She is already on Eliquis. I was consulted for evaluation and management. The chart was reviewed. The patient was evaluated. ALLERGIES: CODEINE. SOCIAL HISTORY: Negative for smoking. Drinks occasionally. FAMILY HISTORY: Noncontributory to her current medical condition. MEDICATIONS: 1. She is on amiodarone 200 mg a day. 2. Lovenox was given. 3. Metoprolol on a p.r.n. basis. 4. She was on Eliquis at home. 5. Atorvastatin 6. Losartan. REVIEW OF SYSTEMS: The patient currently refers no chest pain, no chest discomfort, just converted back into sinus rhythm. No vomiting, no fever. PHYSICAL EXAMINATION: GENERAL: Alert, fully oriented. VITAL SIGNS: Currently blood pressure 90/50, pulse was around 140, currently 61, respiratory rate 18. LUNGS: Ventilated. CARDIOVASCULAR: S1, S2. No gallop. ABDOMEN: Soft, no mass. No bruits. EXTREMITIES: No edema. Electrocardiogram indicated atrial fibrillation with fast ventricular response, diffuse ST changes. Telemetry currently shows sinus rhythm. LABORATORY DATA: Hemoglobin 12.8, white blood cells 6.2. Potassium 3.7, creatinine is 0.89. INR 1.0. ASSESSMENT AND RECOMMENDATIONS: Mrs. Jones is on the second or third hospitalization for the past month. Atrial fibrillation with fast ventricular response, heart rate difficult to control. Electrophysiology study and ablation discussed. The risks, the nature and the benefits of the procedure were clearly stated to her. The risks include pneumothorax, cardiac perforation, stroke and even . The patient understood and agreed to proceed. Procedure will be performed during hospitalization. Carlita Villalta MD HS/SB , 05:45 PM , 06:37 PM
--- NOTE | 2017-11-11 19:41 | EKG ---
Date Performed: 11/11/2017 Time Performed: 08:03:16 PTAGE: 67 years EKG: ATRIAL FIBRILLATION WITH RAPID VENTRICULAR RESPONSE NONSPECIFIC ST & T-WAVE ABNORMALITY ABN ORMAL ECG Compared to prior electrocardiogram, atrial fibrillation is now present and ST segment and T wave changes are now present . PREVIOUS TRACING : 11/04/2017 09.36 DOCTOR: Wes Ortiz Interpretating Date/Time 11/11/2017 19:39:26
[2017-11-11] MEDS: TEMAZEPAM 15 MG CAP PO PRN (21:38)
[2017-11-11] MEDS: ATORVASTATIN 40 MG TAB PO SCH (21:38)
[2017-11-12] VITALS (27 sets, daily range): BP systolic 92–105; BP diastolic 51–65; PULSE 54–88; RESP 18; TEMP 97.5–98.1; O2SAT 95–98
[2017-11-12] MEDS: LOSARTAN 25 MG TAB PO SCH (07:59)
[2017-11-12] MEDS: CETIRIZINE HCL 10 MG TAB PO SCH (08:00)
[2017-11-12] MEDS: AMIODARONE 200 MG TAB PO SCH (08:00)
[2017-11-12] MEDS ORDERED: [UNRECOGNIZED DRUG - OTHER] PO SCH (09:00)
[2017-11-12] MEDS ORDERED: NON-FORMULARY DRUG (Multiple Vitamins W/ Minerals (Preservision Areds) 1 TAB) PO SCH (09:00)
[2017-11-12] MEDS ORDERED: ENOXAPARIN SODIUM 80 MG/0.8 ML SYRINGE SQ ONE (21:00)
[2017-11-12] MEDS: ATORVASTATIN 40 MG TAB PO SCH (21:30)
[2017-11-12] MEDS: TEMAZEPAM 15 MG CAP PO PRN (21:33)
[2017-11-13] VITALS (21 sets, daily range): BP systolic 94–120; BP diastolic 54–68; PULSE 46–96; RESP 18; TEMP 97.5–98.1; O2SAT 96–99
[2017-11-13] MEDS: SODIUM CHLORID 0.9% 500 ML INJ 500 ML IV SCH (08:27)
[2017-11-13] MEDS: AMIODARONE 200 MG TAB PO SCH (08:28)
[2017-11-13] MEDS: LOSARTAN 25 MG TAB PO SCH (08:29)
[2017-11-13] MEDS: CETIRIZINE HCL 10 MG TAB PO SCH (08:29)
[2017-11-13] MEDS ORDERED: SUCCINYLCHOLINE CHLORIDE 100 MG/5 ML SYRINGE IV PUSH ONE (12:00)
[2017-11-13] MEDS ORDERED: PHENYLEPH/NS 1000 MCG/10 ML SYR IV ONE (12:00)
[2017-11-13] MEDS ORDERED: LIDOCAINE HCL 1% PF 5 ML SYRINGE OTHER ONE (12:00)
[2017-11-13] MEDS ORDERED: ePHEDrine/NS 25 MG/5 ML SYRINGE IV ONE (12:00)
[2017-11-13] MEDS ORDERED: PROPOFOL 200 MG/20 ML AMP IV ONE (12:00)
[2017-11-13] MEDS ORDERED: HEPARIN-D5W 25,000 U/250 ML 250 ML ONE (15:49)
[2017-11-13] MEDS ORDERED: HEPARIN-NS/PF INJ 500 ML ONE (15:50)
[2017-11-13] MEDS ORDERED: HEPARIN SODIUM - IV 10,000 UNITS/10 ML VIAL ONE ×2 (15:50→15:51)
[2017-11-13] MEDS ORDERED: PROTAMINE SULFATE 50 MG/5 ML VIAL ONE ×2 (15:51→18:28)
[2017-11-13] MEDS ORDERED: ISOPROTERENOL INJ PREMIX 50 ML IV ONE (15:52)
[2017-11-13] MEDS ORDERED: LEVOFLOXACIN 500 MG PREMIX INJ 100 ML IV ONE (16:13)
[2017-11-13] MEDS ORDERED: SODIUM CHLOR 0.9% 250 ML INJ 250 ML IV PRN (18:30)
[2017-11-13] MEDS ORDERED: ONDANSETRON HCL 4 MG/2 ML VIAL IV PUSH PRN (18:30)
[2017-11-13] MEDS ORDERED: ATROPINE SULFATE 1 MG/ML VIAL IV PUSH PRN (18:30)
[2017-11-13] MEDS ORDERED: LIDOCAINE HCL 1% 50 ML VIAL INFIL PRN (18:30)
[2017-11-13] MEDS ORDERED: oxyCODONE/ACETAMINOPHEN 5 MG/325 MG TAB PO PRN ×2 (18:30)
[2017-11-13] MEDS ORDERED: BACITRACIN OINT 0.9 GM PKT TOP ONE (18:30)
[2017-11-13] MEDS ORDERED: LORazepam 2 MG/ML VIAL IV PUSH PRN (18:30)
--- NOTE | 2017-11-13 18:31 | PD.CARD ---
Atrial Fibrillation Cryo Study PROCEDURE DATE: Nov 13, 2017 PROCEDURE PERFORMED Electrophysiology study, CS cannulation, 3-D mapping, transeptal approach, right and left heart catheterization, cryoablation and RF ablation of atrial fibrillation, pulmonary vein isolation, posterior ablation, anterior ablation, repeat electrophysiology study on Isuprel infusion, intracardiac echo. Very complex case. INDICATIONS FOR PROCEDURE Ms. Jones is a 67-year-old female with atrial fibrillation, on multiple medications, on anticoagulation,multiple ER visits, referred for electrophysiology study and ablation. The risks, the nature and the benefit of the procedure are clearly stated to her. The risks include pneumothorax, cardiac perforation, stroke, need for open heart surgery and even . The patient understood and agreed to proceed. PROCEDURE As written informed consent was obtained prior to esophageal echo, the patient was kept on the table where she was prepped and draped in the usual sterile fashion. Conscious sedation was initiated and throughout the procedure by the anesthesiologist. Once sedation was verified, the right and left inguinal area was anesthetized with 2% Xylocaine. Using modified Seldinger technique, the left femoral vein was cannulated on three occasions and three guidewires were advanced over the wire, one 6, one 7, and one 10-Citizen [place]ema[place] were advanced. Then the left femoral artery was done on one occasion, one guidewire was advanced over the wire. A 4-Citizen [place] was advanced. Then the right femoral vein was cannulated on one occasion and one guidewire was advanced over the wire. An 8-Citizen [place] was advanced. Then under fluoroscopic guidance through the 6 and 7-Citizen [place], two 5- Citizen [place] Pia curved quadripolar electrophysiology catheters were advanced and positioned on the His as well as coronary sinus. The patient was in sinus rhythm. Basic interval was measured. They were all within normal limits. Then through the 10-Citizen [place], a Cordis-Young [employer] intracardiac echo catheter was advanced and placed at the right atrium. Multiple views were obtained. There was no pericardial effusion. Pulmonary vein was seen. The atrial septum was visualized. Then the 8-Citizen [place] in the right femoral vein was exchanged for an Agilis transseptal sheath that was placed all the way to the superior vena cava. Through this sheath a [place] needle was advanced. Then the sheath, the dilator and the needle were pulled back progressively until foci engaged. Once the needle was advanced, RF was delivered for 2 seconds. I was able to cross into the left atrium. Once the needle was crossed, the dilator was advanced. Once the dilator was crossed, the sheath was advanced. Once the sheath crossed , the dilator and needle were removed. An intracardiac echo showed the sheath in good position. The patient already received 8,000 units of heparin. The goal is to get an ACT around 360 during the ablation. Through this sheath a [place] 20-pole circumferential catheter was advanced. Using [employer] endocardial solution mapping system a three-dimensional configuration of the left atrium was obtained. Points were taken at the left superior and inferior vein, right superior and inferior vein, mitral valve, and appendage. Then at this point I decided to proceed with cryoablation. The circumferential catheter was removed. Through the sheath a 0.035 wire was advanced. I did exchange the Agilis sheath for a [employer] flex sheath. I decided to use a 28mm balloon. The balloon was advanced over the [employer] wire. First I did engage the left superior vein. The balloon was inflated, complete occlusion obtained. CryoEnergy was delivered for 3 and 3 minutes. Temperature reached -46. Then I did engage the left inferior vein, occlusion obtained. Venography showed complete occlusion and CryoEnergy was delivered for 3 and 3 minutes. Temperature was around -48. Then the right inferior was engaged, complete occlusion obtained. Temperature reach -54 for 3 and 3 minutes. Then the right superior was engaged. Before CryoEnergy of the right veins, the His catheter was placed at the left and the right subclavian. Phrenic nerve pacing was performed. There was diaphragmatic stimulation. That is going to be used for phrenic nerve monitoring during cryoablation. I did cryoablate the right superior vein. There was no loss of phrenic nerve movement , diaphragmatic movement. Phrenic nerve was intact. The temperature dropped to -56 for 3 and 3 minutes. At that point I removed the balloon. Pacing from the vein showed no conduction to the atrium. Pacing from the atrium showed no conduction to the veins. The patient at this point received Isuprel infusion for around 15 minutes at 20mcg. No tachyarrhythmia was induced , no conduction resumed. Post-Isuprel no conduction resumed either. At that point the procedure was complete. All catheters were removed, the transeptal sheath was exchanged for a 12-Citizen [place]. Intracardiac echo showed pericardial effusion, still good flow in the pulmonary vein. No incident reported. The patient tolerated the procedure. Blood loss minimal. 1. Electrocardiogram: At baseline the patient was in sinus. Postprocedure the patient in sinus. 2. Basic Interval: Base cycle length was around 940 milliseconds. 3. Tachyarrhythmia: Atrial fibrillation was mapped and ablated. Ablation was successful. CONCLUSION Successful electrophysiology study, mapping and cryo ablation of atrial fibrillation, pulmonary vein isolation, posterior and anterior wall ablation, repeat electrophysiology study on Isuprel infusion. COMMENT AND RECOMMENDATIONS The patient is going to be transferred to the telemetry unit, will be observed, and when stable can be discharged home. Carlita Villalta MD Nov 13, 2017 18:31
[2017-11-13] MEDS ORDERED: DO NOT ADM ANY ANTICOAGULANT DRUGS PRN (18:52)
--- NOTE | 2017-11-13 18:53 | CATHPROC ---
HitchedPic HIS Report Study Information Study Number Admission Scheduled Start Study Start [id number] Nov 11 2017 8:43AM 11/11/2017 Nov 12 2017 4:07PM [place] [facility] Electrophysiology Study Admit Source Facility Department Other [facility] - Traffic Rate Analyst Physician and Clinical Staff Initial Carlita Martinez Driver Guard Andriy Brown,RT(R) Driver Guard Lisa Colindres,DAKOTA Other Anesthesia, FACTORY EXPERT Recorder Kathleen Shepard RN Recorder Marilou Liao ,JUNEN Scrub Maritza Busby,RT(R) TECH2 Procedures Performed Procedure Location (Site) Vessel Name CRYO Ablation LIPV LIPV CRYO Ablation LSPV LSPV CRYO Ablation RIPV RIPV CRYO Ablation RSPV RSPV ICE CATHETER INSERT RA Atruim Equipment Time Import Customs Clearing Agent Description Size Mfg Part Number Used/Scraped NEEDLE, TRANSSEPTAL NRG 98 [id number] 15:43 [facility] Used C1 *[id number] [employer]/ EP [id number] 15:43 KIT, TRANSDUCER / AFIB Used PACER *[id number] SHEATH, FR8.5 STEERABLE SM 16:40 BUND[facility] 71CM [id number] Used 71CM BUNDLE [id number] 18:16 C[employer] MEDICAL VASCADE, FR5 CLOSURE SYSTEM FR 5 Used *[id number] 18:16 [employer] MEDICAL VASCADE, FR6 CLOSURE SYSTEM FR 6\\7 Used *[id number] 18:16 C[employer] MEDICAL VASCADE, FR6 CLOSURE SYSTEM FR 6\\7 Used *[id number] 18:16 C[employer] MEDICAL VASCADE, FR6 CLOSURE SYSTEM FR 6\\7 Used *[id number] COVER, TRANSDUCER CABLE [id number] 15:43 [employer] Used ACUNAV *[id number] SHEATH SET, FR12 CHECK-DANAE [id number] 18:13 COOK/PACER FR12 Used 13CM *[id number] 15:43 CORDIS/PACER SHEATH, FR10 LOREN 11CM FR 10 Used *[id number] 15:43 CORDIS/PACER SHEATH, FR9 LOREN 11CM FR 9 [id number] Used [id number] 15:43 [employer] BLANKET,WARM AIR CCL * Used *[id number] 15:43 [employer] PACK, CCL CUSTOM * Used *[id number] 15:43 MEDLINE PACER ANDERSON, LIMB * 2530 *[id number] Used 16:32 [employer] MEDICAL SHEATH, FR5.5 PRELUDE 11CM FR 5 [id number] Used [id number] 15:43 NAMIC TUBING, HIGH PRESSURE 20" 20" Used *[id number] 15:43 NAMIC TUBING, HIGH PRESSURE 48" 48" Used *[id number] 15:43 [facility] MEDICAL CATHETER, JSN, QUAD FR 5 Used *[id number] 113409 15:43 [facility] [employer] MEDICAL CATHETER, JSN, QUAD FR 5 Used *1800296 [id number] 15:43 [facility] MEDICAL ELECTRODE KIT, MEEK X SURFACE * Used *[id number] 15:43 [facility] MEDICAL SET, [place] TUBING 63045 *[id number] Used 387604 15:43 [facility] MEDICAL SHEATH, EPS, FR6 FAST CATH FR 6 Used *[id number] 15:43 [facility] MEDICAL SHEATH, EPS, FR7 FAST CATH FR 7 [id number] Used 214640 15:43 [facility] MEDICAL SHEATH, EPS, FR8 FAST CATH FR 8 Used *[id number] CATHETER, ACUNAV FR10 ICE [id number] 16:38 DENIA FR 10 Used (DENIA) *[id number] [facility] PAD, ELECTROSURGICAL 15:43 * [id number] *[id number] Used SURGICAL GROUNDING (BLUE) BALLOON, ARCTIC FRONT [id number] 16:49 [employer] Used ADVANCE 28MM *[id number] CATHETER, ACHEIVE MAPPING [id number] 16:50 [employer] 20MM Used 20MM *[id number] SHEATH, FR12 FLEXCATH 16:49 [employer] FR 12 [id number] Used STEERABLE History: Allergies Allergy Reaction codeine PASSED OUT History: Risk Factors Hypertension Dyslipidemia Yes Yes Labs Hgb (g/dl) Hct (%) RBC (MIL/MM3) WBC (l/cumm) Platelets (thousands) 11.60-17.00 35.00-51.00 4.00-5.90 4.00-11.00 150.00-450.00 12.0 38 4.1 6.2 327 Glucose (mg/dl) BUN (mg/dl) Creatinine (mg/dl) BUN:Creatinine (1:x) 74.00-106.00 7.00-18.00 0.50-1.30 10.00-20.00 138 16 0.8 20 Na (meq/l) K (meq/l) 136.00-145.00 3.50-5.10 137 3.7 INR (PTT:PT) 0.90-1.10 1 Medication Medication Total Dose (Bolus/Oral) Medication Total Dosage/Unit 1% XYLOCAINE 20 mL HEPARIN 57839 units PROTAMINE 60 mg Medications (Bolus/Oral) Medication Time Given Dosage/Unit Administered By Reason 1% XYLOCAINE 11/13/2017 4:30:30 PM 10 mL Carlita Villalta 10 mL 1% XYLOCAINE given in lab by Carlita Villalta in Left Groin via Subcutaneous. Ordered by Rickey Villalta 1% XYLOCAINE 11/13/2017 4:34:09 PM 10 mL Carlita Villalta 10 mL 1% XYLOCAINE given in lab by Carlita Villalta in Right Groin via Subcutaneous. Ordered by JuanD iego Villalta. HEPARIN 11/13/2017 4:39:25 PM 8000 units Anesthesia, FACTORY EXPERT 8000 units HEPARIN given in lab by Anesthesia, FACTORY EXPERT via Peripheral IV. Ordered by Carlita Villalta. HEPARIN 11/13/2017 4:52:31 PM 2000 units Anesthesia, FACTORY EXPERT 2000 units HEPARIN given in lab by Anesthesia, FACTORY EXPERT via Peripheral IV. Ordered by Carlita Villalta. HEPARIN 11/13/2017 5:04:54 PM 3000 units Anesthesia, FACTORY EXPERT 3000 units HEPARIN given in lab by Anesthesia, FACTORY EXPERT via Peripheral IV. Ordered by Carlita Villalta. HEPARIN 11/13/2017 5:16:43 PM 4000 units Anesthesia, FACTORY EXPERT 4000 units HEPARIN given in lab by Anesthesia, FACTORY EXPERT via Peripheral IV. Ordered by Carlita Villalta. PROTAMINE 11/13/2017 6:19:07 PM 50 mg Anesthesia, FACTORY EXPERT 50 mg PROTAMINE given in lab by Anesthesia, FACTORY EXPERT via Peripheral IV. Ordered by Carlita Villalta. PROTAMINE 11/13/2017 6:29:57 PM 10 mg Anesthesia, FACTORY EXPERT 10 mg PROTAMINE given in lab by Anesthesia, FACTORY EXPERT via Peripheral IV. Ordered by Carlita Villalta. Medication (Drip) Medication Time Given Dosage/Unit Concentration/Unit Diluent (ml) Solution HEPARIN DRIP 11/13/2017 4:53:18 PM 1000 units/hr 03321 units 250 D5W 1000 units/hr HEPARIN DRIP given in lab by Anesthesia, FACTORY EXPERT via Peripheral IV. Pump/Drip Flow = 10 ml /hr using D5[place] [address] units in 250 ml. Ordered by Carlita Villalta. IV Solutions 11/13/2017 3:51:31 PM 50 mL (IV) NaCl .9 IV Solutions given in lab by Anesthesia, FACTORY EXPERT via Peripheral IV. Pump/Drip Flow using NaCl .9. Ordere d by Carlita Villalta. LEVAQUIN 11/13/2017 4:21:05 PM 100 mL/hr 500 100 NaCl .9 100 mL/hr LEVAQUIN given in lab by Anesthesia, FACTORY EXPERT via Peripheral IV. Pump/Drip Flow = 0 ml/hr using NaCl .9 with a concentration of 500 in 100 ml. Ordered by Carlita Villalta. Final Case Assessment Cardiovascular HR Rhythm NIBP Chest Pain 100 sr 116/40 0 Edema Present Skin color Skin None Normal Warm Dry Circulatory - Right Pulses Dorsalis Pedis 1 Scale (0,1,2,3,4,d) Circulatory - Left Pulses Dorsalis Pedis 1 Scale (0,1,2,3,4,d) Neurological State Oriented to time-place- Alert Moves all extremities person Respiration - General Respiration Rate SpO2 (%) O2 (lpm) (B/min) 18 100 4 Chronological Log Time Study Chronological Log 15:47:26 Patient arrived via Bed. 15:47:27 Patient Name, D.O.B, / Armband Verified By R.N. 15:47:27 Consent signed by the physician and the patient and verified by the Traffic Rate Analyst staff. 15:47:28 Pre-op and post- op instructions given; patient acknowledges understanding of instructions. 15:47:35 Verbal Stimulation=2 Physical Stimulation=2 Airway=2 Respiration=2 TOTAL=8. (0=absent, 1=li mited, 2=present) 15:47:37 Anesthesia at bedside. Assumes care of patient. 15:47:39 Patient has been NPO for More than 6Hrs. 15:47:40 Skin Breakdown- None per pt 15:48:03 History and physical on the chart. 15:48:11 A # 20 IV was noted in the Antecubital (left). Grade = 0 0.9% NaCl @ KVO 15:50:06 Celio Prominences Protected 15:50:56 A accessed port IV was noted in the R Upper Chest. IV Solutions given in lab by Anesthesia, FACTORY EXPERT via Peripheral IV. Pump/Drip Flow using NaCl .9. Ordered by Ambar, 15:51:31 Carlita. 15:52:03 Disposable Defibrillator Pads Placed On Patient. 15:52:13 Patient Warmer Placed on the Table. 15:53:51 Table restraints applied according to hospital policy Pt intubated by anesthesia. A 14fr vyas catheter was inserted aseptically by . Bag placedto bedside with clear, yellow 16:11:36 urine returns. 16:14:04 Bilateral groins prepped with 2% chlorhexidine, and draped after a 3 minute waiting time. 16:15:53 MD arrived. 100 mL/hr LEVAQUIN given in lab by Anesthesia, FACTORY EXPERT via Peripheral IV. Pump/Drip Flow = 0 ml/hr using NaCl .9 with 16:21:05 a concentration of 500 in 100 ml. Ordered by Carlita Villalta. Time Out. Correct patient, procedure, procedure equipment, site and side verified with physicia n present. Time 16:26:24 concurred by MD, individual staff and FACTORY EXPERT. Time Out #2 - Consents verified, patient in correct position, all results are labled and displa yed, safety precautions 16:26:33 taken, antibiotics administered. Time out concurred by MD, individual staff and FACTORY EXPERT in procedu re 16:26:50 Case Start 16:26:57 DAGMAR in progress 16:29:48 DAGMAR complete 16:30:30 10 mL 1% XYLOCAINE given in lab by Carlita Villalta in Left Groin via Subcutaneous. Ordered by Carlita Villalta. 16:31:02 Vascular access was obtained in the Fem Vein (left). 16:31:06 Vascular access was obtained in the Fem Vein (left). 16:31:16 Vascular access was obtained in the Fem Vein (left). 16:31:28 Vascular access was obtained in the Fem Art (left). 16:31:48 A SHEATH, FR5.5 PRELUDE 11CM FR 5 was advanced into the Fem Art (left) using the Percutaneo us technique. 16:32:27 A SHEATH, EPS, FR6 FAST CATH FR 6 was advanced into the Fem Vein (left) using the Percutane ous technique. 16:32:33 A SHEATH, EPS, FR7 FAST CATH FR 7 was advanced into the Fem Vein (left) using the Percutane ous technique. 16:32:37 A SHEATH, FR10 LOREN 11CM FR 10 was advanced into the Fem Vein (left) using the Percutaneo us technique. 16:34:09 10 mL 1% XYLOCAINE given in lab by Carlita Villalta in Right Groin via Subcutaneous. Ordered b Carlita Rubi. 16:34:36 Vascular access was obtained in the Fem Vein (right). 16:34:44 A SHEATH, EPS, FR8 FAST CATH FR 8 was advanced into the Fem Vein (right) using the Percutan eous technique. A CATHETER, JSN, QUAD FR 5 was advanced vis Fem Vein (left) and placed in the CS. Placement was visually 16:36:33 confirmed under fluoroscopy. A CATHETER, JSN, QUAD FR 5 was advanced vis Fem Vein (left) and placed in the HIS. Placement wa s visually 16:37:27 confirmed under fluoroscopy. 16:37:55 CATHETER, ACUNAV FR10 ICE ([employer]) FR 10 Was Postioned. A SHEATH, FR8.5 STEERABLE SM 71CM BUNDLE 71CM was exchanged in the Fem Vein (right). This was n ecessary in 16:39:23 order for catheter support. 16:39:25 8000 units HEPARIN given in lab by Anesthesia, FACTORY EXPERT via Peripheral IV. Ordered by Rickey Villalta. 16:43:41 [place] in 16:46:40 Activated Clotting Time Drawn 16:47:59 A eps was advanced to the right atrium and passed through the septal wall to the left atriu m. 16:52:18 ACT (Normal Range 90-180) = 308 16:52:31 2000 units HEPARIN given in lab by Anesthesia, FACTORY EXPERT via Peripheral IV. Ordered by Rickey Villalta. 1000 units/hr HEPARIN DRIP given in lab by Anesthesia, FACTORY EXPERT via Peripheral IV. Pump/Drip Flow = 10 ml/hr using 16:53:18 [place] [address] units in 250 ml. Ordered by Carlita Villalta. A SHEATH, FR12 FLEXCATH STEERABLE FR 12 was exchanged in the Fem Vein (right). This was necessa ry in order for 16:55:16 catheter support. A CATHETER, ACHEIVE MAPPING 20MM 20MM was advanced vis Fem Vein (right) and placed in the LA. P lacement was 16:59:19 visually confirmed under fluoroscopy. 17:00:11 A BALLOON, ARCTIC FRONT ADVANCE 28MM was inserted over wire via the Fem Vein (right). 17:01:09 Cryo Ablation of the LSPV with a BALLOON, ARCTIC FRONT ADVANCE 28MM. first 17:01:32 Activated Clotting Time Drawn 17:04:38 ACT (Normal Range 90-180) = 237 17:04:54 3000 units HEPARIN given in lab by Anesthesia, FACTORY EXPERT via Peripheral IV. Ordered by Rickey Villalta nscy. 17:05:10 Cryo Ablation of the LSPV with a BALLOON, ARCTIC FRONT ADVANCE 28MM. second 17:09:22 Cryo Ablation of the LSPV with a BALLOON, ARCTIC FRONT ADVANCE 28MM. Third 17:11:36 Activated Clotting Time Drawn 17:16:23 ACT (Normal Range 90-180) = 299 17:16:43 4000 units HEPARIN given in lab by Anesthesia, FACTORY EXPERT via Peripheral IV. Ordered by Rickey Villalta nscy. 17:25:14 Cryo Ablation of the LIPV with a BALLOON, ARCTIC FRONT ADVANCE 28MM. First 17:26:44 Activated Clotting Time Drawn 17:29:18 Cryo Ablation of the LIPV with a BALLOON, ARCTIC FRONT ADVANCE 28MM. Second 17:31:57 ACT (Normal Range 90-180) = 476 17:35:04 Cryo Ablation of the LIPV with a BALLOON, ARCTIC FRONT ADVANCE 28MM. Third 17:39:25 Activated Clotting Time Drawn 17:40:23 Cryo Ablation of the RIPV with a BALLOON, ARCTIC FRONT ADVANCE 28MM. 1st attempt 17:46:03 ACT (Normal Range 90-180) = 319 17:48:59 Cryo Ablation of the RIPV with a BALLOON, ARCTIC FRONT ADVANCE 28MM. 2nd attempt 17:49:45 Activated Clotting Time Drawn 17:53:32 Cryo Ablation of the RSPV with a BALLOON, ARCTIC FRONT ADVANCE 28MM. 1st freeze 17:56:12 ACT (Normal Range 90-180) = 391 17:56:18 ACT (Normal Range 90-180) = 424 18:09:56 d/c isuprel 18:11:26 Catheter(s) and balloon removed without difficulty A SHEATH SET, FR12 CHECK-DANAE 13CM FR12 was exchanged in the Fem Vein (right). This was necessar y in order to 18:11:52 minimize site leakage. Assessment: Final Case, AF=048 BPM, Rhythm=sr, HUPI=741/40 mmhg, Chest Pain=0, Edema=None, [place] r=Normal, Skin = Warm, Dry Right Pulses: Nikita Ped=1 18:13:23 Left Pulses: Nikita Ped=1 Neurological: State=Alert, Ox3, SYED Respiration: Resp=18 B/min, AbX0=214 %, O2=4 lpm 18:14:15 Right femoral venous sheath left in place, will be removed in Holding Area 18:14:19 Case End (Physician broke scrub) 18:16:17 VASCADE, FR6 CLOSURE SYSTEM FR 6\\7 placement in the Fem Vein (left) 18:17:25 VASCADE, FR6 CLOSURE SYSTEM FR 6\\7 placement in the Fem Vein (left) 18:18:32 VASCADE, FR6 CLOSURE SYSTEM FR 6\\7 placement in the Fem Vein (left) 18:19:07 50 mg PROTAMINE given in lab by Anesthesia, FACTORY EXPERT via Peripheral IV. Ordered by Priya Villalta. 18:19:36 VASCADE, FR5 CLOSURE SYSTEM FR 5 placement in the Fem Art (left); pressure held 18:21:32 Implantable Device card placed in patient's chart. 18:24:16 Activated Clotting Time Drawn 18:28:10 PACU called. Spoke to [facility] 18:28:22 Bedside Report will be given. 18:28:30 No case complications noted. 18:28:31 Cine recording checked. 18:29:50 ACT (Normal Range 90-180) = 217 18:29:57 10 mg PROTAMINE given in lab by Anesthesia, FACTORY EXPERT via Peripheral IV. Ordered by Yuavl Villalta. 18:35:36 Sterile dressing applied to site 18:37:23 Activated Clotting Time Drawn 18:39:11 ACT (Normal Range 90-180) = 149 18:42:35 Patient moved to stretcher 18:45:59 Defibrillator and ground pads removed. Skin intact. End Study - Contrast Media Used In Study Contrast Total Opened (mL) Total Used (mL) Total Wasted (mL) Omnipaque 70 70 0 End Study - Maximum Contrast Load Max Contrast Load (mL) 421.9 End Study - Radiation Exposure Fluoro Time (minutes) 19.3 End Study - Patient Disposition Complications Transferred To Interventional Outcome No Telemetry Bed successful
[2017-11-13] MEDS ORDERED: ONDANSETRON ODT 4 MG TAB PO PRN (19:00)
[2017-11-13] MEDS: APIXABAN 5 MG TABLET PO SCH (20:52)
[2017-11-13] MEDS: ATORVASTATIN 40 MG TAB PO SCH (20:53)
[2017-11-14] VITALS (15 sets, daily range): BP systolic 89–96; BP diastolic 53–57; PULSE 58–76; RESP 16; TEMP 97.8–98.4; O2SAT 94–98
[2017-11-14] MEDS: TEMAZEPAM 15 MG CAP PO PRN (01:27)
[2017-11-14 05:10] LABS: INTERNATIONAL NORMALIZED RATIO 1.1 RATIO; PROTHROMBIN TIME - PATIENT 11.5 SEC (9.8-11.6)
[2017-11-14] MEDS: SODIUM CHLORID 0.9% 500 ML INJ 500 ML IV SCH (05:55)
[2017-11-14] MEDS ORDERED: IOHEXOL 350 MG/ML 100 ML BTL (for Cath Lab) OTHER ONE (08:05)
[2017-11-14] MEDS: LOSARTAN 25 MG TAB PO SCH (08:22)
[2017-11-14] MEDS: CETIRIZINE HCL 10 MG TAB PO SCH (08:23)
[2017-11-14] MEDS: APIXABAN 5 MG TABLET PO SCH (08:23)
[2017-11-14] MEDS: AMIODARONE 200 MG TAB PO SCH (08:23)
--- NOTE | 2017-11-14 13:35 | MD ---
cc: Carlita Villalta MD, Wagid F MD DATE OF DISCHARGE: 11/14/2017 HISTORY OF PRESENT ILLNESS: Ms. Gallardo is a 67-year-old female with atrial fibrillation, very symptomatic. Previous hospitalization and was readmitted on 11/11/2017 due to atrial fibrillation, fast ventricular response. During hospitalization converted to sinus rhythm. Ablation was performed yesterday and was successful. She had cryoablation. PHYSICAL EXAM: GENERAL: This morning is stable, alert, fully oriented in sinus rhythm. VITAL SIGNS: Her blood pressure is 89/63, pulse 64, respiratory rate 18. LUNGS: Ventilated. CARDIOVASCULAR: S1, S2. No gallop. No murmur. ABDOMEN: Soft. No masses. EXTREMITIES: No edema. LABORATORY DATA: Electrocardiogram shows sinus rhythm, no acute ST changes. Ms. Gallardo is currently on Eliquis 5 mg twice a day. She will be discharged home also on amiodarone 200 mg a day. ASSESSMENT AND RECOMMENDATIONS: She is stable. She will be discharged home. She will be followed in 3 weeks in my office. Had a free diet recommended. The patient advised for any chest pain or shortness of breath to go to the nearest emergency room. Carlita Villalta MD HS/DL , 01:06 PM , 01:34 PM
--- NOTE | 2017-11-14 18:29 | EKG ---
Date Performed: 11/13/2017 Time Performed: 19:24:15 PTAGE: 67 years EKG: Sinus rhythm WITH SHORT NM INTERVAL BORDERLINE ECG when compared to prior EKG, patient is no longer in atrial fib rillation PREVIOUS TRACING : 11/11/2017 08.03 DOCTOR: Florencia Hugo Interpretating Date/Time 11/14/2017 18:27:47
--- NOTE | 2017-11-14 18:29 | EKG ---
Date Performed: 11/14/2017 Time Performed: 06:00:28 PTAGE: 67 years EKG: Sinus rhythm Normal ECG Since the PREVIOUS TRACING , no significant change noted PREVIOUS TRACIN11/13/2017 19.24 DOCTOR: Florencia Hugo Interpretating Date/Time 11/14/2017 18:27:56
== END 2017-11-14 14:30 | disposition home or self-care (01) | DRG 274 ==
LOC: PHED 07:57 → PHEDA 08:43 → HDIC 10:53 → HCPC 10:57 → HDIC 11:06 → HCPC 15:23
PROVIDERS: ADMIT Internal Medicine Interventional Cardiology; ATTEND Internal Medicine Interventional Cardiology
PROC: 4A023N8 Measurement of Cardiac Sampling and Pressure, Bilateral, Percutaneous Approach (ICD-10-PCS; 2017-11-13)
PROC: 4A0234Z Measurement of Cardiac Electrical Activity, Percutaneous Approach (ICD-10-PCS; 2017-11-13)
PROC: B244YZZ Ultrasonography of Right Heart using Other Contrast (ICD-10-PCS; 2017-11-13)
PROC: 02K83ZZ Map Conduction Mechanism, Percutaneous Approach (ICD-10-PCS; 2017-11-13)
PROC: 02583ZZ Destruction of Conduction Mechanism, Percutaneous Approach (ICD-10-PCS; principal; 2017-11-13 17:00)
DX: I48.91 Unspecified atrial fibrillation (principal); I10 Essential (primary) hypertension; Z85.118 Personal history of other malignant neoplasm of bronchus and lung; Z79.01 Long term (current) use of anticoagulants; Z85.828 Personal history of other malignant neoplasm of skin
CPT/HCPCS: 71045; 80053; 83735; 84484; 85002; 85025; 85610; 85730; 86850; 86900; 86901; 93005; 93312; 93320; 93325; 93613; 93623; 93656; 93662; 99285; C1730; C1731; C1732; C1733; C1759; C1760; G0269; J0330; J1644; J1650; J1956; J2370; J2720; J3010; J7030; J7040; Q9967

== ENCOUNTER 2018-04-01 10:56 | Inpatient (IN) ==
[2018-04-01 15:07] LABS: Baso % (Auto) 0.2 % (0.0-2.0); Eos % (Auto) 0.1 % (0.0-4.0); Hematocrit 35.9 % (35.0-46.0); Hemoglobin 11.8 gm/dL (11.6-15.3); Lymph # (Auto) 0.4 th/mm3 (1.0-4.8); Lymph % (Auto) 6.9 % (9.0-44.0); Mean Corpuscular HGB Conc 32.8 % (32.0-36.0); Mean Corpuscular Hemoglobin 29.9 pg (27.0-34.0); Mean Corpuscular Volume 91.1 fL (80.0-100.0); Mean Platelet Volume 6.7 fL (7.0-11.0); Mono # (Auto) 0.5 th/mm3 (0.0-0.9); Mono % (Auto) 8.1 % (0.0-8.0); Neut # (Auto) 5.5 th/mm3 (1.8-7.7); Neut % (Auto) 84.7 % (16.0-70.0); Platelet Count 131 th/mm3 (150-450); Red Blood Count 3.94 mil/mm3 (4.00-5.30); Red Cell Distribution Width 18.2 % (11.6-17.2); White Blood Count 6.5 th/mm3 (4.0-11.0)
[2018-04-01 15:29] LABS: Alanine Aminotransferase 30 U/L (10-53); Albumin 3.1 g/dL (3.4-5.0); Anion Gap 9 meq/L (5-15); Aspartate Aminotransferase 20 U/L (15-37); Blood Urea Nitrogen 14 mg/dL (7-18); Calcium 8.5 mg/dL (8.5-10.1); Carbon Dioxide 25.5 meq/L (21.0-32.0); Chloride 106 meq/L (98-107); Glomerular Filtration Rate Greater Than 89 mL/min (>89); Glucose,Random 101 mg/dL (74-106); Potassium 3.4 meq/L (3.5-5.1); Sodium 140 meq/L (136-145)
[2018-04-01 15:32] LABS: Alkaline Phosphatase 83 U/L (45-117); Total Protein 6.4 g/dL (6.4-8.2)
[2018-04-01] MEDS ORDERED: Cathflo Activase Inj 2 MG Vial I-CATHETER PRN (17:24)
[2018-04-01] MEDS: Potassium Chlor 20 mEq Premix 20 MEQ/100 ML PIGGYBACK IV.SIG SCH ×2 (18:05→20:22)
[2018-04-01] MEDS: Dextrose 5%/NaCl 0.9% Inj 1,000 ML IV.CONT SCH (18:47)
[2018-04-01] MEDS ORDERED: Mag Sulf 1 gm/100 ml Premix 100 ML IV.SIG ONE (20:32)
[2018-04-01] MEDS: Acetaminophen 325 MG Tablet PO PRN (20:40)
--- NOTE | 2018-04-01 21:07 | MH ---
cc: Tiff Rogers MD DATE OF ADMISSION: 04/01/2018 ADMISSION DIAGNOSIS: Intractable nausea and vomiting. SECONDARY DIAGNOSIS: Metastatic non-small cell lung cancer. HISTORY OF PRESENT ILLNESS: Ms. Jones is a 67-year-old woman with metastatic non-small cell lung cancer. She progressed on palliative therapy with nivolumab. She was placed on Taxotere and ramucirumab. She completed 4 cycles of Taxotere and is currently on ramucirumab maintenance. She was seen recently, having returned from a trip to [facility]. She was doing well and received her last dose of ramucirumab on 03/25/2018. She called the page auger press operator early this morning with complaints of intractable nausea and vomiting for the last 12 hours. She vomited her Zofran. She was brought into the clinic at [facility]. She was given IV fluid hydration and antiemetic therapy. Her symptoms did not resolve. She had persistent low abdominal pain and tenderness on palpation. She was admitted directly to the hospital for further evaluation of the abdominal pain leading to the intractable nausea and vomiting. She denies any sick contact. She denies any fevers, chills or night sweats. She had no other illness. The nausea and vomiting began just shortly before her presentation. She has some headaches. She feels thirsty and dry. She denies any vision changes. No chest pain or shortness of breath. She feels weak from the vomiting. She had a bowel movement this morning. She denies any bleeding. No melena or bright red blood per rectum. PAST MEDICAL HISTORY: History of atrial fibrillation status post ablation, angina, hypercholesterolemia, hypertension, metastatic non-small cell lung cancer, history of coronary artery disease. PAST SURGICAL HISTORY: Blepharoplasty, hand surgery, upper endoscopy, port placement, CT-guided lung biopsy, colonoscopy. ALLERGIES: CODEINE. FAMILY HISTORY: Mother is in the 90s. No cancer. Father is . She has one aunt that has breast cancer and pancreatic cancer. SOCIAL HISTORY: She is currently single. She is retired. She quit smoking 10 years ago. She has a [id number] smoking history. She denies any illicit drug use. She drinks alcohol socially. PHYSICAL EXAMINATION: VITAL SIGNS: Temperature 98.9, heart rate 74, respiratory rate 18, blood pressure 137/75, saturation 95%. GENERAL: Ms. Jones is a well-developed, well-nourished, ill-appearing woman who looks tired. She was feeling better after some hydration, although her symptom of abdominal pain has not resolved. HEENT: Her pupils are round, reactive to light and accommodation. Oropharynx is dry. NECK: Supple. LUNGS: Clear to auscultation. CARDIOVASCULAR: Reveals a normal rate and rhythm. ABDOMEN: Flat, but tender to palpation. LOWER EXTREMITIES: No edema. NEUROLOGIC: Nonfocal. LABORATORY DATA: WBC 6.5, hemoglobin 11.9, platelet count 131. Chemistry significant for hypokalemia, potassium of 3.4, BUN of 14, creatinine 0.5. Liver functions are normal. Albumin is slightly decreased. ASSESSMENT AND PLAN: Ms. Jones is a 67-year-old woman with multiple medical problems described above. She has metastatic non-small cell lung cancer. She has had stable disease. She was recently on combination chemotherapy of ramucirumab and Taxotere. Clinically, she was doing well. She is on ramucirumab maintenance at this point. We discussed keeping her n.p.o. until CT scan of the abdomen to evaluate further etiology of the abdominal pain. She has a previous CT PET scan that showed diverticular disease. She denies any urinary complaints. She has tenderness to palpation. She has vomiting the last 12 hours, but has improved with IV antiemetic therapy. We will continue antiemetic therapy treatment. Anticipate gastrointestinal consultation pending on the findings on CT scan. We will evaluate for bowel obstruction, volvulus or diverticulitis. She has no fevers. Antibiotic therapy is deferred at present. She is ambulatory. Low molecular weight heparin will be initiated as deep venous thrombosis prophylaxis. Hypokalemia, will be treated with IV fluid replacement. She is given IV potassium to replace hypokalemia. If she is to remain n.p.o. for an extended period of time, director employment/dietitian will be consulted for TPN. Overnight, D5 NS will be provided pending the results of the CT. The case was discussed with [place] [facility]ist, who will assist in medical management. Her questions were answered to her satisfaction. MD GREGORY Nobles/rw/ll , 08:29 PM , 08:41 PM
--- NOTE | 2018-04-01 21:22 | XR ---
EXAM DATE: 04/01/2018 8:59 PM EDT AGE/SEX: 67 years / Female INDICATIONS: Abdominal pain for 20 hours. CLINICAL DATA: This is the patient's initial encounter. Patient reports that signs and symptoms have been present for 1 day and indicates a pain score of 8/10. MEDICAL/SURGICAL HISTORY: Carcinoma, lung. None. COMPARISON: No prior exams available for comparison. FINDINGS: Mildly dilated small bowel upper abdomen. Gas pattern otherwise unremarkable. No free air. No acute bony abnormality. CONCLUSION: Nonspecific minimally dilated small bowel left upper quadrant. Electronically signed by: Sukh Up MD 04/01/2018 9:21 PM EDT
--- NOTE | 2018-04-01 21:28 | CT ---
EXAM DATE: 04/01/2018 9:06 PM EDT AGE/SEX: 67 years / Female INDICATIONS: Abdominal pain, nausea, vomiting. CLINICAL DATA: This is the patient's initial encounter. Patient reports that signs and symptoms have been present for 1 day and indicates a pain score of 5/10. MEDICAL/SURGICAL HISTORY: Cardiovascular disease. Hypertension. Carcinoma, lung. Afib, duode nal ulcer, gastritis, basal cell carcinoma. None. RADIATION DOSE: 6.37 CTDI (mGy) COMPARISON: TLI, CT ABDOMEN AND PELVIS W/O CONTRAST, 05/30/2017. . TECHNIQUE: Multiple contiguous axial images were obtained through the abdomen. Images were obtained using multiple row detector helical technique. Using automated exposure control and adjustment of the mA and/or kV according to patient size, radiation dose was kept as low as reasonably achievable to o btain optimal diagnostic quality images. DICOM format image data is available electronically for rev iew and comparison. FINDINGS: There is a small right-sided pleural effusion small pericardial effusion. Trace left pleural fluid. L dieudonne bases are otherwise clear. No acute findings in the liver, spleen, adrenals, kidneys or pancreas. No calcified gallstones or ariadna iary ductal dilatation. There is mural thickening of the colon most characteristic of a colitis, especially on the right side . No acute bony abnormality. CONCLUSION: 1. Small right-sided pleural effusion and small pericardial effusion. 2. Mural thickening of the colon especially on the right side most characteristic of a colitis. 3. Stranding of fat in the right lower quadrant is stable from 2017. Electronically signed by: Sukh Up MD 04/01/2018 9:27 PM EDT
[2018-04-02 06:23] LABS: Baso % (Auto) 0.4 % (0.0-2.0); Eos % (Auto) 0.3 % (0.0-4.0); Hemoglobin 11.5 gm/dL (11.6-15.3); Lymph # (Auto) 0.7 th/mm3 (1.0-4.8); Lymph % (Auto) 10.7 % (9.0-44.0); Mean Corpuscular HGB Conc 32.7 % (32.0-36.0); Mean Corpuscular Hemoglobin 29.6 pg (27.0-34.0); Mean Corpuscular Volume 90.6 fL (80.0-100.0); Mean Platelet Volume 6.9 fL (7.0-11.0); Mono # (Auto) 0.5 th/mm3 (0.0-0.9); Neut # (Auto) 5.3 th/mm3 (1.8-7.7); Neut % (Auto) 80.6 % (16.0-70.0); Platelet Count 124 th/mm3 (150-450); Red Blood Count 3.87 mil/mm3 (4.00-5.30); Red Cell Distribution Width 18.8 % (11.6-17.2); White Blood Count 6.6 th/mm3 (4.0-11.0)
[2018-04-02 06:46] LABS: Albumin 2.8 g/dL (3.4-5.0); Anion Gap 7 meq/L (5-15); Aspartate Aminotransferase 16 U/L (15-37); Blood Urea Nitrogen 14 mg/dL (7-18); Calcium 8.3 mg/dL (8.5-10.1); Carbon Dioxide 24.6 meq/L (21.0-32.0); Chloride 107 meq/L (98-107); Glomerular Filtration Rate Greater Than 89 mL/min (>89); Glucose,Random 112 mg/dL (74-106); Magnesium 2.2 mg/dL (1.5-2.5); Sodium 139 meq/L (136-145)
[2018-04-02 06:47] LABS: Alanine Aminotransferase 24 U/L (10-53); Lactate Dehydrogenase 192 U/L (84-246)
[2018-04-02 06:50] LABS: Alkaline Phosphatase 82 U/L (45-117); Total Protein 6.4 g/dL (6.4-8.2)
--- NOTE | 2018-04-02 09:02 | P.CONIM ---
History of Present Illness Primary Care Provider: UNKNOWN History of Present Illness: Pt is 67 yo with metastatic nonsmall cell lung ca who progressed on nivolumab. She then completed 4cycles of taxotere and now on Ramucicumab last dose 03/25. 2 nights ago pt developed pain across her lower abdomen and she initially thought was gas. She did have a nml bowel movement after the pain started. She then began to vomit. no blood in stool or vomit. Denies any fever or chills. Yesterday had ivf and anti emetics in oncology clinic but no improvement so admitted for evaluation. CT a/p showed concern for colitis and mural thickening mostly on right side. pt denies any recent antibiotic use. This morning feel better but still with lower abdomen pain. denies uti sx's PMH: "cad" based on cardiac CT afib s/p ablation now sinus hyperlipidemia metastatic nonsmall cell lung ca c scope about 3 yrs ago polpys port placement hand surgery blepharoplasty FH. aunt pancreatic ca and breast ca SH 2 to 3 oz vodka per night quit tob 15yrs ago after 30yrs 1ppd PMFSH Medical History Medical History Atrial fibrillation with rapid ventricular response (Acute) Basal cell carcinoma (Acute) CAD (coronary artery disease) (Acute) Duodenal ulcer (Acute) Gastritis (Acute) Hyperlipidemia (Acute) Hypertension (Acute) Metastatic non-small cell lung cancer (Acute) Smoking history (Acute) Surgical History Surgical History H/O colonoscopy with polypectomy (Acute) S/p bilateral blepharoplasty (Acute) Family History Family History Other Family history of acute myocardial infarction Family history of hypertension Hyperlipidemia Social History Social History Substance History: No History of Abuse Second Hand Smoke Exposure: No Smoking Status: Former smoker Tobacco Type: Cigarettes How Often Do You Have a Drink Containing Alcohol: 2 to 3 times a week Recent Travel in [facility] within the Last 8 Weeks: No Recent Out of Country Travel within the Last 8 Weeks: No Immunization History Tetanus Immunization: Unsure Hx Influenza Vaccine This Season: No Medications and Allergies Allergies Allergy/AdvReac Type Severity Reaction Status Date / Time codeine AdvReac Mild PASSED OUT Verified 11/11/17 08:35 Home Medications Medication Instructions Recorded Confirmed Type apixaban [Eliquis] 5 mg PO BID 04/01/18 04/01/18 History atorvastatin 40 mg PO DAILY 10/30/18 10/30/18 History losartan 25 mg PO DAILY 04/01/18 04/01/18 History Active Medications: Active Medications Acetaminophen (Tylenol) 650 mg PO Q4H PRN PRN Reason: HEADACHE Last Admin: 04/01/18 20:40 Dose: 650 mg Alteplase, Recombinant (Cathflo Activase Inj) 2 mg I-CATHETER UNSCH PRN PRN Reason: for clotted access port Atorvastatin Calcium (Lipitor) 40 mg PO DAILY MIRI Dextrose/Sodium Chloride (D5w/Normal Saline Inj) 1,000 mls @ 100 mls/hr IV.CONT .Q10H MIRI Last Admin: 04/01/18 18:47 Dose: 100 mls/hr Loratadine (Claritin) 10 mg PO DAILY MIRI Lorazepam (Ativan Inj) 0.5 mg IV.PUSH DAILY PRN PRN Reason: ANXIETY Losartan Potassium (Cozaar) 25 mg PO DAILY MIRI Morphine Sulfate (Morphine Inj) 1 mg IV.PUSH Q2H PRN PRN Reason: Pain Scale 8 to 10 Ondansetron HCl (Zofran Inj) 4 mg IV.PUSH Q6H PRN PRN Reason: nausea/vomiting Prochlorperazine Edisylate (Compazine Inj) 10 mg IV.PUSH Q4H PRN PRN Reason: NAUSEA OR VOMITING Physical Exam Vital signs: Last Vital Signs Temp 97.4 F L 04/02/18 04:00 Pulse 72 04/02/18 04:00 Resp 16 04/02/18 04:00 BP 144/83 H 04/02/18 04:00 Pulse Ox 97 04/02/18 04:00 Narrative: heart reg lung cta abd s/nd/mild bilateral lower quad tenderness. no rebound. bs ext no edema Results Labs CBC & Chem 7: 04/02/18 05:15 04/02/18 05:15 Assessment and Plan Assessment (1) Non-small cell lung cancer: Code(s): C34.90 - Malignant neoplasm of unspecified part of unspecified bronchus or lung Status: Acute (2) Abdominal pain: Code(s): R10.9 - Unspecified abdominal pain Status: Acute (3) Colitis: Code(s): K52.9 - Noninfective gastroenteritis and colitis, unspecified Status: Acute (4) Afib: Code(s): I48.91 - Unspecified atrial fibrillation Status: Chronic Plan Pt is 67 yo with metastatic nonsmall cell lung ca who progressed on nivolumab. She then completed 4cycles of taxotere and now on Ramucicumab last dose 03/25. 2 nights ago pt developed pain across her lower abdomen and she initially thought was gas. She did have a nml bowel movement after the pain started. She then began to vomit. no blood in stool or vomit. Denies any fever or chills. Yesterday had ivf and anti emetics in oncology clinic but no improvement so admitted for evaluation. CT a/p showed colitis. 1. stool studies enteric pathogens/cdiff 2. GI consulted to evaluate colitis 3. ivf with kcl 4. prn antiemetics 5. stop eliquis. pt says she only takes asa due to epistaxis with eliquis 6. claritin for post nasal gtt causing some nausea
--- NOTE | 2018-04-02 09:19 | P.PNONC ---
Subjective Interval history: Afebrile. Patient resting comfortably in bed. Seen alongside . CT abdominal findings discussed. Patient denies any further vomiting, she has had a few sips clear liquids. Objective Vital Signs/Intake & Output: Vital Signs 04/01/18 12:54 04/01/18 20:00 04/01/18 21:10 Temperature 98.9 F 98.1 F Pulse Rate 74 67 Respiratory Rate 18 18 16 Blood Pressure 137/75 131/73 Pulse Oximetry 95 97 04/02/18 00:00 04/02/18 04:00 Temperature 98.2 F 97.4 F L Pulse Rate 57 L 72 Respiratory Rate 18 16 Blood Pressure 128/73 144/83 H Pulse Oximetry 96 97 Intake & Output 04/01/18 04/02/18 04/02/18 18:59 06:59 18:59 Intake Total 120 / 120 300 / 300 Balance 120 / 120 300 / 300 Weight 70.4 kg Intake: IV 300 / 300 Magnesium Sulfate 1 gm/D5W 100 100 / 100 ml Premix 100 ML @ 25 mls/hr IV .SIG ONCE ONE Rx#:[id number] KCl 20 mEq Premix Inj 20 meq In 200 / 200 100 ml @ 50 mls/hr IV.SIG Q2H MIRI Rx#:[id number] Oral 120 / 120 Other: # Voids 2 Date of Last Bowel Movement 04/01/18 Weight On Admission 70.5 kg Result Diagrams: 04/02/18 05:15 04/02/18 05:15 Laboratory Results: Laboratory Results - last 24 hr 04/01/18 04/01/18 04/02/18 14:17 14:17 05:15 WBC 6.5 6.6 RBC 3.94 L 3.87 L Hgb 11.8 11.5 L Hct 35.9 35.0 MCV 91.1 D 90.6 MCH 29.9 29.6 MCHC 32.8 32.7 RDW 18.2 H 18.8 H Plt Count 131 L 124 L MPV 6.7 L 6.9 L Neut % (Auto) 84.7 H 80.6 H Lymph % (Auto) 6.9 L 10.7 [place] % (Auto) 8.1 H 8.0 Eos % (Auto) 0.1 0.3 Baso % (Auto) 0.2 0.4 Neut # (Auto) 5.5 5.3 Lymph # (Auto) 0.4 L 0.7 L [place] # (Auto) 0.5 0.5 Eos # (Auto) 0.0 0.0 Baso # (Auto) 0.0 0.0 WBC Differential . . Differential Comment Auto diff final Auto diff final Sodium 140 Potassium 3.4 L Chloride 106 Carbon Dioxide 25.5 Anion Gap 9 BUN 14 Creatinine 0.53 Estimated GFR Greater than 89 Random Glucose 101 Calcium 8.5 Magnesium Total Bilirubin 0.6 AST 20 ALT 30 Alkaline Phosphatase 83 Lactate Dehydrogenase Total Protein 6.4 Albumin 3.1 L 04/02/18 05:15 WBC RBC Hgb Hct MCV MCH MCHC RDW Plt Count MPV Neut % (Auto) Lymph % (Auto) [place] % (Auto) Eos % (Auto) Baso % (Auto) Neut # (Auto) Lymph # (Auto) [place] # (Auto) Eos # (Auto) Baso # (Auto) WBC Differential Differential Comment Sodium 139 Potassium 4.0 Chloride 107 Carbon Dioxide 24.6 Anion Gap 7 BUN 14 Creatinine 0.54 Estimated GFR Greater than 89 Random Glucose 112 H Calcium 8.3 L Magnesium 2.2 D Total Bilirubin 0.5 AST 16 ALT 24 Alkaline Phosphatase 82 Lactate Dehydrogenase 192 Total Protein 6.4 Albumin 2.8 L Imaging Studies: Impressions Abdomen X-Ray 04/01/18 00:00 CONCLUSION: Nonspecific minimally dilated small bowel left upper quadrant. Abdomen/Pelvis CT 04/01/18 15:40 CONCLUSION: 1. Small right-sided pleural effusion and small pericardial effusion. 2. Mural thickening of the colon especially on the right side most characteristic of a colitis. 3. Stranding of fat in the right lower quadrant is stable from 2017. Medications: Active Medications Generic Name Dose Route Start Last Admin Trade Name Freq PRN Reason Stop Dose Admin Acetaminophen 650 mg 04/01/18 20:33 04/01/18 20:40 Tylenol PO 650 mg Q4H PRN Administration HEADACHE Dextrose/Sodium Chloride 1,000 mls @ 100 mls/hr 04/01/18 15:45 04/01/18 18:47 D5w/Normal Saline Inj IV.CONT 100 mls/hr .Q10H MIRI Administration Objective Remarks: GENERAL: Chronically ill-appearing female patient, in no acute distress. SKIN: Warm and dry.+ Alopecia. HEAD: Normocephalic. EYES: No scleral icterus. No injection or drainage. NECK: Supple, trachea midline. CARDIOVASCULAR: Regular rate and rhythm without murmurs. RESPIRATORY: Posterior breath sounds clear, equal bilaterally. No accessory muscle use. GASTROINTESTINAL: Abdomen soft, non-tender, nondistended. EXTREMITIES: No cyanosis, or edema. MUSCULOSKELETAL: Adequate muscle tone. NEUROLOGICAL: No obvious focal deficit. Awake, alert, and oriented x3. PSYCHIATRIC: Appropriate mood and affect; insight and judgment normal. Assessment/Plan - Plan Ms. Jones is a pleasant 67-year-old female with metastatic non-small cell lung cancer. She is currently on ramucirumab maintenance after completing 4 cycles of Taxotere. She was admitted for intractable nausea and vomiting. Recommendations: 1. Colitis, vomiting currently controlled. Patient has started clear liquid diet. If she is unable to tolerate, we will start TPN. Continue to monitor. Awaiting GI consult for possible colonoscopy. 2. Hypokalemia, replace per protocol. Repeat serum potassium 4.0. 3. Continue supportive care. - Attending Statement The exam, history, and the medical decision-making described in the above note were completed with the assistance of the mid-level provider. I reviewed and agree with the findings presented. I attest that I had a [id number] encounter with the patient on the same day, and personally performed and documented my assessment and findings in the medical record. Discussed with Dr. Soria, concern for ischemic colitis. Treatment with VEGF inhibitor as maintenance for metastatic NSCLCA. Improved symptoms with bowel rest but abdominal pain right sided still persist. No fevers, no vomiting. Hypokalemia and hypomagnesemia corrected. Discussed with medical consult, [facility] hospitalist. Continue current support. Start clears and monitor if tolerated.
[2018-04-02] MEDS: Loratadine 10 MG Tablet PO SCH (09:59)
[2018-04-02 10:20] LABS: Chol/HDL Ratio 1.69 Ratio; HDL Cholesterol 80.2 mg/dL (40.0-60.0)
[2018-04-02] MEDS: Acetaminophen 325 MG Tablet PO PRN (12:05)
--- NOTE | 2018-04-02 12:31 | P.DIET ---
Nutritional Evaluation Type of nutrition evaluation: initial Nutrition consult regarding: TPN/PPN Nutrition screening: [facility] [place] Screening comments: 04/01/18 [facility] Other; abdominal pain pt NPO evaluate for TPN Subjective Oral Diet Tolerance Assessment Indicates: Nausea, Vomiting Objective - Diagnosis Abdominal Pain, Intractable N/V - Objective % IBW: 126 Body Weight Used for Calculations: IBW (56 kg) Energy Needs - Lower Range (kCal/kg): 27 Energy Needs - Upper Range (kCal/kg): 32 Lower Limit kCal/kg (kCals): 1,512 Upper Limit kCal/kg (kCals): 1,792 Lower Limit Protein Factor (Grams per Kg): 1.4 Upper Limit Protein Factor (Grams per Kg): 1.8 Lower Protein Needs (Protein): 78 Upper Protein Needs (Protein): 100 Dietitian Reviewed in Medical Record: Current diet, Curent medications, Intake & Output, Labs, Medical history Diet Order: Clear Liquid Objective Comments: PMH includes: AFib w/RVR, Basal Cell Carcinoma, CAD, Duodenal Ulcer, Gastritis, HLD, HTN, Metastatic non-small lung cancer CT showed colitis Labs include: Glucose 112, CRP 21.0, TG 54 LBM 04/01 Assessment Assessment: Pt is at nutritional risk r/t diagnosis and need for TPN. For TPN, Rec CLINIMIX E 5/20 @ 80ml/hr and 20% Lipids 250ml 31.25ml over 8-hr bi-weekly to offer 96g Protein and 1690 kcal. Lipids will offer an additional 1000 kcal per week. GUR = 3.8. Monitor Labs/electrolytes closely. Rec weekly TG level w/TPN. Additional Recs to follow r/t Clinical Course. Recommendations: 1. For TPN, Rec CLINIMIX E 5/20 @ 80ml/hr and 20% Lipids 250ml 31.25ml over 8- hr bi-weekly 2. Rec weekly TG level w/TPN 3. Additional Recs to follow r/t Clinical Course Dietitian to Monitor: Lab values, Electrolytes, Glucose level, Intake & Output, Diet tolerance, TPN/PPN tolerance, Weight change, PO Intake, Diet advancement, Medical course
--- NOTE | 2018-04-02 15:25 | P.CONGI ---
History of Present Illness Consult date: 04/02/18 Consult reason: Lower abdominal pain, right colon colitis Chief complaint: Abdominal Pain, Intractable N/V History of Present Illness: This is a 67-year-old female who came to the hospital on 04/02/2018 for lower abdominal pain and cramping that initiated approximately 3 days ago. Patient also had symptoms of nausea and then vomiting but denied any hematemesis or rectal bleeding. Patient noted small formed stool this a.m. yellow in color, and notes some increased gas bloating but no obvious distention. Labs reviewed which showed current hemoglobin 11.5, WBC count normal at 6.6, platelet count 124, and C. difficile toxin stool study pending. Patient's currently being treated for non-small cell lung cancer with metastasis and is currently receiving chemotherapy treatment. Patient does note history of EGD colonoscopy approximately 3 years ago with a history of polyps. Patient also states no family history of colon cancer but she did have an aunt with pancreatic cancer. Patient is awake answering simple questions appears to be a good historian. Gastroenterology was consulted to assist with her symptom management of lower abdominal pain and plan of care. <Elsa Arvizu - Last Filed: 04/02/18 15:16> PMFSH - History History Provided By: Patient, Friend - Medical History Medical History: Medical History (Last Updated 04/01/18 @ 14:36 by Teresa Lopes) Atrial fibrillation with rapid ventricular response Basal cell carcinoma CAD (coronary artery disease) Duodenal ulcer Gastritis Hyperlipidemia Hypertension Metastatic non-small cell lung cancer Smoking history - Surgical History Surgical History: Surgical History (Last Updated 04/01/18 @ 14:32 by Teresa Lopes) H/O colonoscopy with polypectomy S/p bilateral blepharoplasty - Family History Family History: Family History (Last Updated 04/01/18 @ 14:33 by Teresa Lopes) Other Family history of acute myocardial infarction Family history of hypertension Hyperlipidemia - Tobacco History Second Hand Smoke Exposure: No Tobacco Use In Past 30 Days: No Smoking Status: Former smoker Tobacco Type: Cigarettes - Alcohol History How Often Do You Have a Drink Containing Alcohol: 2 to 3 times a week - Substance Use History Substance History: No History of Abuse - Travel History Recent Travel in the [place] Within the Last 8 Weeks: No Recent Travel Out of the Country Within the Last 8 Weeks: No - Immunization History Tetanus Immunization: Unsure Hx Influenza Vaccine This Season: No <Elsa Arvizu Estefany - Last Filed: 04/02/18 15:16> - Medical History Medical History: Medical History (Last Updated 04/01/18 @ 14:36 by Teresa Lopes) Atrial fibrillation with rapid ventricular response Basal cell carcinoma CAD (coronary artery disease) Duodenal ulcer Gastritis Hyperlipidemia Hypertension Metastatic non-small cell lung cancer Smoking history - Surgical History Surgical History: Surgical History (Last Updated 04/01/18 @ 14:32 by Teresa Lopes) H/O colonoscopy with polypectomy S/p bilateral blepharoplasty - Family History Family History: Family History (Last Updated 04/01/18 @ 14:33 by Teresa Lopes) Other Family history of acute myocardial infarction Family history of hypertension Hyperlipidemia <Gertrudis Durand - Last Filed: 04/02/18 15:46> Medications and Allergies Active Medications: Active Medications Acetaminophen (Tylenol) 650 mg PO Q4H PRN PRN Reason: HEADACHE Last Admin: 04/02/18 12:05 Dose: 650 mg Alteplase, Recombinant (Cathflo Activase Inj) 2 mg I-CATHETER UNSCH PRN PRN Reason: for clotted access port Atorvastatin Calcium (Lipitor) 40 mg PO DAILY [facility] Last Admin: 04/02/18 10:07 Dose: 40 mg Bisacodyl (Dulcolax Ec) 20 mg PO ONCE ONE Stop: 04/02/18 16:01 Enoxaparin Sodium (Lovenox Inj) 40 mg SQ DAILY [facility] Famotidine (Pepcid) 20 mg PO HS [facility] Dextrose/Sodium Chloride (D5w/Normal Saline Inj) 1,000 mls @ 100 mls/hr IV.CONT .Q10H [facility] Last Admin: 04/01/18 18:47 Dose: 100 mls/hr Loratadine (Claritin) 10 mg PO DAILY [facility] Last Admin: 04/02/18 09:59 Dose: 10 mg Lorazepam (Ativan Inj) 0.5 mg IV.PUSH DAILY PRN PRN Reason: ANXIETY Losartan Potassium (Cozaar) 25 mg PO DAILY [facility] Last Admin: 04/02/18 09:59 Dose: 25 mg Magnesium Citrate (Citroma Liq) 300 ml PO ONCE ONE Stop: 04/02/18 16:01 Magnesium Citrate (Citroma Liq) 300 ml PO ONCE ONE Stop: 04/02/18 18:01 Morphine Sulfate (Morphine Inj) 1 mg IV.PUSH Q2H PRN PRN Reason: Pain Scale 8 to 10 Ondansetron HCl (Zofran Inj) 4 mg IV.PUSH Q6H PRN PRN Reason: nausea/vomiting Prochlorperazine Edisylate (Compazine Inj) 10 mg IV.PUSH Q4H PRN PRN Reason: NAUSEA OR VOMITING <Elsa Arvizu M - Last Filed: 04/02/18 15:16> Active Medications: Active Medications Acetaminophen (Tylenol) 650 mg PO Q4H PRN PRN Reason: HEADACHE Last Admin: 04/02/18 12:05 Dose: 650 mg Alteplase, Recombinant (Cathflo Activase Inj) 2 mg I-CATHETER UNSCH PRN PRN Reason: for clotted access port Atorvastatin Calcium (Lipitor) 40 mg PO DAILY [facility] Last Admin: 04/02/18 10:07 Dose: 40 mg Bisacodyl (Dulcolax Ec) 20 mg PO ONCE ONE Stop: 04/02/18 16:01 Enoxaparin Sodium (Lovenox Inj) 40 mg SQ DAILY [facility] Famotidine (Pepcid) 20 mg PO HS [facility] Dextrose/Sodium Chloride (D5w/Normal Saline Inj) 1,000 mls @ 100 mls/hr IV.CONT .Q10H [facility] Last Admin: 04/01/18 18:47 Dose: 100 mls/hr Loratadine (Claritin) 10 mg PO DAILY [facility] Last Admin: 04/02/18 09:59 Dose: 10 mg Lorazepam (Ativan Inj) 0.5 mg IV.PUSH DAILY PRN PRN Reason: ANXIETY Losartan Potassium (Cozaar) 25 mg PO DAILY [facility] Last Admin: 04/02/18 09:59 Dose: 25 mg Magnesium Citrate (Citroma Liq) 300 ml PO ONCE ONE Stop: 04/02/18 16:01 Magnesium Citrate (Citroma Liq) 300 ml PO ONCE ONE Stop: 04/02/18 18:01 Morphine Sulfate (Morphine Inj) 1 mg IV.PUSH Q2H PRN PRN Reason: Pain Scale 8 to 10 Ondansetron HCl (Zofran Inj) 4 mg IV.PUSH Q6H PRN PRN Reason: nausea/vomiting Prochlorperazine Edisylate (Compazine Inj) 10 mg IV.PUSH Q4H PRN PRN Reason: NAUSEA OR VOMITING <Gertrudis Durand - Last Filed: 04/02/18 15:46> Allergies Allergy/AdvReac Type Severity Reaction Status Date / Time codeine AdvReac Mild PASSED OUT Verified 11/11/17 08:35 Home Medications Medication Instructions Recorded Confirmed Type atorvastatin 40 mg PO DAILY 04/01/18 04/01/18 History losartan 25 mg PO DAILY 04/01/18 04/01/18 History Exam Vital signs: Vital Signs 04/01/18 20:00 04/01/18 21:10 04/02/18 00:00 Temperature 98.1 F 98.2 F Pulse Rate 67 57 L Respiratory Rate 18 16 18 Blood Pressure 131/73 128/73 Pulse Oximetry 97 96 04/02/18 04:00 04/02/18 08:00 04/02/18 12:00 Temperature 97.4 F L 99.8 F H 97.6 F Pulse Rate 72 74 66 Respiratory Rate 16 18 18 Blood Pressure 144/83 H 138/76 124/74 Pulse Oximetry 97 97 97 Intake & Output 04/01/18 04/02/18 04/02/18 18:59 06:59 18:59 Intake Total 120 / 120 300 / 300 Balance 120 / 120 300 / 300 Weight 70.4 kg Intake: IV 300 / 300 Magnesium Sulfate 1 gm/D5W 100 100 / 100 ml Premix 100 ML @ 25 mls/hr IV .SIG ONCE ONE Rx#:[id number] KCl 20 mEq Premix Inj 20 meq In 200 / 200 100 ml @ 50 mls/hr IV.SIG Q2H [facility] Rx#:[id number] Oral 120 / 120 Other: # Voids 2 Date of Last Bowel Movement 04/01/18 04/02/18 Weight On Admission 70.5 kg <Elsa Arvizu - Last Filed: 04/02/18 15:16> Vital signs: Vital Signs 04/01/18 20:00 04/01/18 21:10 04/02/18 00:00 Temperature 98.1 F 98.2 F Pulse Rate 67 57 L Respiratory Rate 18 16 18 Blood Pressure 131/73 128/73 Pulse Oximetry 97 96 04/02/18 04:00 04/02/18 08:00 04/02/18 12:00 Temperature 97.4 F L 99.8 F H 97.6 F Pulse Rate 72 74 66 Respiratory Rate 16 18 18 Blood Pressure 144/83 H 138/76 124/74 Pulse Oximetry 97 97 97 Intake & Output 04/01/18 04/02/18 04/02/18 18:59 06:59 18:59 Intake Total 120 / 120 300 / 300 Balance 120 / 120 300 / 300 Weight 70.4 kg Intake: IV 300 / 300 Magnesium Sulfate 1 gm/D5W 100 100 / 100 ml Premix 100 ML @ 25 mls/hr IV .SIG ONCE ONE Rx#:[id number] KCl 20 mEq Premix Inj 20 meq In 200 / 200 100 ml @ 50 mls/hr IV.SIG Q2H [facility] Rx#:[id number] Oral 120 / 120 Other: # Voids 2 Date of Last Bowel Movement 04/01/18 04/02/18 Weight On Admission 70.5 kg <Gertrudis Durand - Last Filed: 04/02/18 15:46> Results - Labs CBC & Chem 7: 04/02/18 05:15 04/02/18 05:15 Labs: Laboratory Results - last 24 hr 04/01/18 04/01/18 04/02/18 14:17 14:17 05:15 WBC 6.5 6.6 RBC 3.94 L 3.87 L Hgb 11.8 11.5 L Hct 35.9 35.0 MCV 91.1 D 90.6 MCH 29.9 29.6 MCHC 32.8 32.7 RDW 18.2 H 18.8 H Plt Count 131 L 124 L MPV 6.7 L 6.9 L Neut % (Auto) 84.7 H 80.6 H Lymph % (Auto) 6.9 L 10.7 [place] % (Auto) 8.1 H 8.0 Eos % (Auto) 0.1 0.3 Baso % (Auto) 0.2 0.4 Neut # (Auto) 5.5 5.3 Lymph # (Auto) 0.4 L 0.7 L [place] # (Auto) 0.5 0.5 Eos # (Auto) 0.0 0.0 Baso # (Auto) 0.0 0.0 WBC Differential . . Differential Comment Auto diff final Auto diff final Sodium 140 Potassium 3.4 L Chloride 106 Carbon Dioxide 25.5 Anion Gap 9 BUN 14 Creatinine 0.53 Estimated GFR Greater than 89 Random Glucose 101 Calcium 8.5 Magnesium Total Bilirubin 0.6 AST 20 ALT 30 Alkaline Phosphatase 83 Lactate Dehydrogenase C-Reactive Protein Total Protein 6.4 Albumin 3.1 L Triglycerides Cholesterol LDL Cholesterol, Calc HDL Cholesterol Cholesterol/HDL Ratio 04/02/18 04/02/18 05:15 05:15 WBC RBC Hgb Hct MCV MCH MCHC RDW Plt Count MPV Neut % (Auto) Lymph % (Auto) [place] % (Auto) Eos % (Auto) Baso % (Auto) Neut # (Auto) Lymph # (Auto) [place] # (Auto) Eos # (Auto) Baso # (Auto) WBC Differential Differential Comment Sodium 139 Potassium 4.0 Chloride 107 Carbon Dioxide 24.6 Anion Gap 7 BUN 14 Creatinine 0.54 Estimated GFR Greater than 89 Random Glucose 112 H Calcium 8.3 L Magnesium 2.2 D Total Bilirubin 0.5 AST 16 ALT 24 Alkaline Phosphatase 82 Lactate Dehydrogenase 192 C-Reactive Protein 21.00 H Total Protein 6.4 Albumin 2.8 L Triglycerides 54 Cholesterol 136 LDL Cholesterol, Calc 45 HDL Cholesterol 80.2 H Cholesterol/HDL Ratio 1.69 - Imaging Impressions Abdomen X-Ray 04/01/18 00:00 CONCLUSION: Nonspecific minimally dilated small bowel left upper quadrant. Abdomen/Pelvis CT 04/01/18 15:40 CONCLUSION: 1. Small right-sided pleural effusion and small pericardial effusion. 2. Mural thickening of the colon especially on the right side most characteristic of a colitis. 3. Stranding of fat in the right lower quadrant is stable from 2017. <Elsa Arvizu - Last Filed: 04/02/18 15:16> - Labs CBC & Chem 7: 04/02/18 05:15 04/02/18 05:15 Labs: Laboratory Results - last 24 hr 04/02/18 04/02/18 04/02/18 05:15 05:15 05:15 WBC 6.6 RBC 3.87 L Hgb 11.5 L Hct 35.0 MCV 90.6 MCH 29.6 MCHC 32.7 RDW 18.8 H Plt Count 124 L MPV 6.9 L Neut % (Auto) 80.6 H Lymph % (Auto) 10.7 [place] % (Auto) 8.0 Eos % (Auto) 0.3 Baso % (Auto) 0.4 Neut # (Auto) 5.3 Lymph # (Auto) 0.7 L [place] # (Auto) 0.5 Eos # (Auto) 0.0 Baso # (Auto) 0.0 WBC Differential . Differential Comment Auto diff final Sodium 139 Potassium 4.0 Chloride 107 Carbon Dioxide 24.6 Anion Gap 7 BUN 14 Creatinine 0.54 Estimated GFR Greater than 89 Random Glucose 112 H Calcium 8.3 L Magnesium 2.2 D Total Bilirubin 0.5 AST 16 ALT 24 Alkaline Phosphatase 82 Lactate Dehydrogenase 192 C-Reactive Protein 21.00 H Total Protein 6.4 Albumin 2.8 L Triglycerides 54 Cholesterol 136 LDL Cholesterol, Calc 45 HDL Cholesterol 80.2 H Cholesterol/HDL Ratio 1.69 - Imaging Impressions Abdomen X-Ray 04/01/18 00:00 CONCLUSION: Nonspecific minimally dilated small bowel left upper quadrant. Abdomen/Pelvis CT 04/01/18 15:40 CONCLUSION: 1. Small right-sided pleural effusion and small pericardial effusion. 2. Mural thickening of the colon especially on the right side most characteristic of a colitis. 3. Stranding of fat in the right lower quadrant is stable from 2017. <Gertrudis Durand - Last Filed: 04/02/18 15:46> Assessment and Plan - Plan 67-year-old female who came to the hospital on 04/02/2018 for lower abdominal pain and cramping that initiated approximately 3 days ago. Patient also had symptoms of nausea and then vomiting but denied any hematemesis or rectal bleeding. Patient noted small formed stool this a.m. yellow in color, and notes some increased gas bloating but no obvious distention. Labs reviewed which showed current hemoglobin 11.5, WBC count normal at 6.6, platelet count 124, and C. difficile toxin stool study pending. Patient's currently being treated for non-small cell lung cancer with metastasis and is currently receiving chemotherapy treatment. Patient does note history of EGD colonoscopy approximately 3 years ago with a history of polyps. Patient also states no family history of colon cancer but she did have an aunt with pancreatic cancer. Patient is awake answering simple questions appears to be a good historian. Gastroenterology was consulted to assist with her symptom management of lower abdominal pain and plan of care. Lower abdominal pain and cramping consistent with right-sided colitis. C. difficile test pending. Patient currently is being treated with chemotherapy meds for non-small cell lung CA with metastasis. Patient has never had any symptoms for treatment with for colitis before. This could be related to her decreased immunity versus infection versus inflammatory. Nausea vomiting, small yellow stool could be related to #1 History of polyps, previous EGD colonoscopy approximately 3 years ago Family history of aunt and pancreatic cancer Previous smoker Current alcohol intake 2-3 ounces of vodka per night Discussed with patient colonoscopy and prep. Patient's only concern is her nausea but we discussed options of subset enema if needed Plan Diet clear liquids Consent for colonoscopy in a.m. N.p.o. at midnight Prep mag citrate x2 with Dulcolax, slowly this p.m. if needed to control nausea and vomiting Monitor lab for any obvious bleeding Monitor number of stools intake and output Supportive care Further recommendations to follow Patient was seen per myself and Dr. Durand, note was written on his behalf <Elsa Arvizu - Last Filed: 04/02/18 15:16> - Plan Patient was seen and examined, agree with above note, I discussed the case with Dr. Johnathon Rogers, we need to rule out ischemic colitis since it is 1 of the side effect of the medication, patient still complaining of abdominal tenderness she is agreeable to have colonoscopy we will do that tomorrow <Gertrudis Durand - Last Filed: 04/02/18 15:46>
[2018-04-02] MEDS ORDERED: Magnesium Citrate Liq 300 ML Bottle PO ONE ×2 (16:00→18:00)
[2018-04-02] MEDS: Dextrose 5%/NaCl 0.9% Inj 1,000 ML IV.CONT SCH ×2 (18:48→22:36)
[2018-04-02] MEDS: Famotidine 20 MG Tablet PO SCH (21:45)
[2018-04-03] MEDS ORDERED: Chlorhexidine Gluconate 2% 1 Pack (2 Cloths) TOPICAL ONE (04:15)
[2018-04-03] MEDS ORDERED: Sodium Chlor 0.9% Inj 500 ML IV.CONT ONE (04:15)
[2018-04-03] MEDS: Dextrose 5%/NaCl 0.9% Inj 1,000 ML IV.CONT SCH ×3 (05:03→19:36)
--- NOTE | 2018-04-03 08:48 | P.PCN ---
Date of procedure: 04/03/18 Procedure: THANK YOU FOR THE REFERRAL Indication; patient has history of lung cancer with metastases, came with abdominal pain nausea vomiting, abnormal CT scan of the ascending colon questionable ischemic colitis since it is 1 of the side effect of the medication that she takes for chemotherapy Procedure Performed; Colonoscopy diagnostic After informing the patient about procedure and possible complications consent was signed. history and physical were updated. Patient was taken to the procedure room and placed in position. Time out was completed. Adequate sedation was performed by anesthesia provider. Colonoscopy, rectal exam was performed the scope was placed in the rectum advanced under video guide to the cecum which was identifed by ileo-cecal valve and appendiceal orifice, then the scope withdrawal slowly with examination of the mucosa to the rectum and retro-flexion was performed, the scope was withdrawal without any immediate complication Findings; Terminal ileum : Normal Colon good preparation, normal exam no sign of ischemic colon or colitis Rectum normal This could be gastroenteritis or viral illness causing her symptoms, patient had recent travel Recommendations; 1- Supportive care 2- ok to transfer to recovery area then discharge per protocol 3- colonoscopy as needed 4-cardiac diet 5-Hemoccult on a yearly basis by primary care physician 6-I discussed the case with Dr. Tiff Rogesr, she will follow-up with her
--- NOTE | 2018-04-03 08:50 | P.PNGI ---
Subjective Interval history: Patient feels better this morning, she had some nausea and vomiting with the prep but she tolerated most of it, less abdominal discomfort Physical Exam Vital signs: Vital Signs 04/02/18 12:00 04/02/18 15:44 04/02/18 20:00 Temperature 97.6 F 99.4 F 99.1 F Pulse Rate 66 72 85 Respiratory Rate 18 18 Blood Pressure 124/74 124/77 146/81 H Pulse Oximetry 97 97 96 04/02/18 20:54 04/03/18 00:56 04/03/18 04:48 Temperature 98 F 98.5 F Pulse Rate 78 69 72 Respiratory Rate 16 16 Blood Pressure 142/69 H 147/77 H Pulse Oximetry 98 95 04/03/18 07:22 Temperature 97.8 F Pulse Rate 74 Respiratory Rate 18 Blood Pressure 150/85 H Pulse Oximetry 98 Intake & Output 04/02/18 04/03/18 04/03/18 18:59 06:59 18:59 Intake Total 2009 1000 / 1000 Output Total 600 / 600 Balance 1410 / 1410 1000 / 1000 Weight 70.3 kg Intake: IV 1000 / 1000 1000 / 1000 D5W/Normal Saline Inj 1,000 ML 1000 / 1000 1000 / 1000 @ 100 mls/hr IV.CONT .Q10H [facility] Rx#:[id number] Oral 1010 / 1010 Output: Urine 600 / 600 Other: # Voids 3 1 Date of Last Bowel Movement 04/02/18 04/02/18 04/03/18 # Bowel Movements 5 1 - Constitutional no acute distress - Routine HEENT Exam Head: Present: normocephalic, atraumatic Eye: Present: EOMI, PERRL ENT: Present: mucous membranes moist - Routine Neck Exam Present: supple, full ROM - Routine Respiratory Exam Present: CTA bilaterally - Routine Cardiovascular Exam Present: RRR, S1, S2 - Routine Abdominal Exam Present: soft, normoactive bowel sounds Comments: Mild discomfort mostly in the lower abdomen - Routine Extremities Exam Present: full ROM Results - Labs CBC & Chem 7: 04/02/18 05:15 04/02/18 05:15 Laboratory Results - last 24 hr 04/02/18 04/02/18 05:15 10:18 C-Reactive Protein 21.00 H Triglycerides 54 Cholesterol 136 LDL Cholesterol, Calc 45 HDL Cholesterol 80.2 H Cholesterol/HDL Ratio 1.69 Stl C.difficile DNA Amp Negative St C. diff Tox Epid 027 Negative Assessment and Plan - Plan Patient was seen and examined, patient doing better, less abdominal pain, colonoscopy was done, I discussed the findings with Dr. Rogers Findings; Terminal ileum : Normal Colon good preparation, normal exam no sign of ischemic colon or colitis Rectum normal This could be gastroenteritis or viral illness causing her symptoms, patient had recent travel Recommendations; 1- Supportive care 2- ok to transfer to recovery area then discharge per protocol 3- colonoscopy as needed 4-cardiac diet 5-Hemoccult on a yearly basis by primary care physician 6-I discussed the case with Dr. Tiff Rogers, she will follow-up with her
[2018-04-03] MEDS: Loratadine 10 MG Tablet PO SCH (09:39)
[2018-04-03] MEDS: Enoxaparin Inj 40 MG/0.4 ML Syringe SQ SCH (09:40)
--- NOTE | 2018-04-03 11:16 | P.PNONC ---
Subjective Interval history: Patient sleeping on approach, awakens easily to voice. She denies any further vomiting. She reports being tired today. Not sleeping well last night. She denies diarrhea or bowel movement. Still with right lower quadrant tenderness. Objective Vital Signs/Intake & Output: Vital Signs 04/02/18 12:00 04/02/18 15:44 04/02/18 20:00 Temperature 97.6 F 99.4 F 99.1 F Pulse Rate 66 72 85 Respiratory Rate 18 18 Blood Pressure 124/74 124/77 146/81 H Pulse Oximetry 97 97 96 04/02/18 20:54 04/03/18 00:56 04/03/18 04:48 Temperature 98 F 98.5 F Pulse Rate 78 69 72 Respiratory Rate 16 16 Blood Pressure 142/69 H 147/77 H Pulse Oximetry 98 95 04/03/18 07:22 04/03/18 08:41 04/03/18 09:37 Temperature 97.8 F 97.7 F 97.8 F Pulse Rate 74 60 66 Respiratory Rate 18 16 18 Blood Pressure 150/85 H 114/59 L 118/74 Pulse Oximetry 98 95 99 04/03/18 09:55 04/03/18 11:00 Temperature Pulse Rate 69 69 Respiratory Rate Blood Pressure Pulse Oximetry Intake & Output 04/02/18 04/03/18 04/03/18 18:59 06:59 18:59 Intake Total 2009 1000 / 1000 1000 / 1000 Output Total 600 / 600 Balance 1410 / 1410 1000 / 1000 1000 / 1000 Weight 70.3 kg Intake: IV 1000 / 1000 1000 / 1000 1000 / 1000 D5W/Normal Saline Inj 1,000 ML 1000 / 1000 1000 / 1000 1000 / 1000 @ 100 mls/hr IV.CONT .Q10H [facility] Rx#:[id number] Oral 1010 / 1010 Output: Urine 600 / 600 Other: # Voids 3 1 Date of Last Bowel Movement 04/02/18 04/02/18 04/03/18 # Bowel Movements 5 1 Result Diagrams: 04/02/18 05:15 04/02/18 05:15 Laboratory Results: Laboratory Results - last 24 hr 04/02/18 10:18 Stl C.difficile DNA Amp Negative St C. diff Tox Epid 027 Negative Medications: Active Medications Generic Name Dose Route Start Last Admin Trade Name Freq PRN Reason Stop Dose Admin Acetaminophen 650 mg 04/01/18 20:33 04/02/18 12:05 Tylenol PO 650 mg Q4H PRN Administration HEADACHE Atorvastatin Calcium 40 mg 04/02/18 09:00 04/03/18 09:39 Lipitor PO 40 mg DAILY [facility] Administration Enoxaparin Sodium 40 mg 04/03/18 10:30 04/03/18 09:40 Lovenox Inj SQ Not Given DAILY [facility] Famotidine 20 mg 04/02/18 21:00 04/02/18 21:45 Pepcid PO 20 mg HS [facility] Administration Dextrose/Sodium Chloride 1,000 mls @ 100 mls/hr 04/01/18 15:45 04/03/18 09:40 D5w/Normal Saline Inj IV.CONT 100 mls/hr .Q10H [facility] Administration Loratadine 10 mg 04/02/18 09:00 04/03/18 09:39 Claritin PO 10 mg DAILY [facility] Administration Lorazepam 0.5 mg 04/01/18 17:24 04/02/18 21:44 Ativan Inj IV.PUSH 0.5 mg DAILY PRN Administration ANXIETY Losartan Potassium 25 mg 04/02/18 09:00 04/03/18 09:39 Cozaar PO 25 mg DAILY [facility] Administration Ondansetron HCl 4 mg 04/01/18 13:43 04/03/18 08:50 Zofran Inj IV.PUSH 4 mg Q6H PRN Administration nausea/vomiting Objective Remarks: GENERAL: Chronically ill-appearing female patient, in no acute distress. SKIN: Warm and dry.+ Alopecia. HEAD: Normocephalic. EYES: No scleral icterus. No injection or drainage. NECK: Supple, trachea midline. CARDIOVASCULAR: + S1/S2 without murmurs. RESPIRATORY: Posterior breath sounds clear, equal bilaterally. No accessory muscle use. GASTROINTESTINAL: Abdomen soft, tender RUQ, RLQ, nondistended. EXTREMITIES: No cyanosis, or edema. MUSCULOSKELETAL: Adequate muscle tone. NEUROLOGICAL: No obvious focal deficit. Awake, alert, and oriented x3. PSYCHIATRIC: Appropriate mood and affect; insight and judgment normal. Assessment/Plan - Plan Ms. Jones is a pleasant 67-year-old female with metastatic non-small cell lung cancer. She is currently on ramucirumab maintenance after completing 4 cycles of Taxotere. She was admitted for intractable nausea and vomiting. Recommendations: 1. Colitis. Denies further vomiting. Status post colonoscopy, findings were normal. 2. Hypokalemia, replace per protocol. 3. Continue supportive care. - Attending Statement The exam, history, and the medical decision-making described in the above note were completed with the assistance of the mid-level provider. I reviewed and agree with the findings presented. I attest that I had a [id number] encounter with the patient on the same day, and personally performed and documented my assessment and findings in the medical record. Sleepy but arousable post procedure. Tolerating PO food well, no vomiting yet. Tenderness in RLQ slightly better. Discussed w/ Dr. Soria colonoscopy results, no evidence of ischemic colitis. Anticipate advance diet and monitor response. Abdominal pain still present.
--- NOTE | 2018-04-03 14:37 | P.PNIM ---
Subjective Interval history: pt still complaining of lower abdomen pain primarily rlq. no appetite and has "no taste". she is eager to try abx . Physical Exam Vital signs: Last Vital Signs Temp 100 F H 04/03/18 11:27 Pulse 70 04/03/18 11:27 Resp 18 04/03/18 11:27 BP 140/73 04/03/18 11:27 Pulse Ox 97 04/03/18 11:27 Narrative: lying in bed oriented no labored breathing heart reg lung cta abd lower quad tenderness worse on right lower quadrant. no rebound. bs ext no edema Results Labs CBC & Chem 7: 04/02/18 05:15 04/02/18 05:15 Assessment and Plan Plan Pt is 67 yo with metastatic nonsmall cell lung ca who progressed on nivolumab. She then completed 4cycles of taxotere and now on Ramucicumab last dose 03/25. 2 nights ago pt developed pain across her lower abdomen and she initially thought was gas. She did have a nml bowel movement after the pain started. She then began to vomit. no blood in stool or vomit. Denies any fever or chills. Yesterday had ivf and anti emetics in oncology clinic but no improvement so admitted for evaluation. CT a/p showed colitis. 1. stool studies enteric pathogens/cdiff all negative. 2. GI consulted to evaluate colitis. c-scope said to have normal appearance to mucosa. ?gastroenteritis considered 3. ivf . diet advanced but not eating much 4. prn antiemetics 5. stop eliquis. pt says she only takes asa due to epistaxis with eliquis 6. claritin for post nasal gtt causing some nausea 7. pt and I discussed ischemic vs infectious colitis. We discussed the abnormal appearance of her CT especially in right lower quadrant, and the normal appearing c scope. Given the ongoing pain, fever, abnormal appearing CT scan we decided to proceed with a short course of levaquin flagyl that would hopefully cover any bacterial infectious colitis or translocated bacteria into the colon wall. Progress Note: Quality VTE Deep Vein Thrombosis/Pulmonary Embolism Present on Admission: No
[2018-04-03] MEDS: Levofloxacin 500 mg Premix Inj 500 MG/100 ML PIGGYBACK IV.SIG SCH (15:41)
[2018-04-03] MEDS: Aspirin 325 MG Tablet PO SCH (15:41)
--- NOTE | 2018-04-03 16:22 | ECG ---
Date Performed: 04/03/2018 Time Performed: 05:03:04 PTAGE: 67 years EKG: Sinus rhythm Rightward axis Extensive ST-T changes are nonspecific Borderline ECG PREVIOUS TRACING : 11/14/2017 06.00 Since the previous tracing, no significant change noted DOCTOR: Miles Osei Interpretating Date/Time 04/03/2018 16:21:11
[2018-04-03] MEDS: Morphine Inj 4 MG/ML Vial IV.PUSH PRN ×2 (19:37→22:16)
[2018-04-03] MEDS: Famotidine 20 MG Tablet PO SCH (22:17)
[2018-04-04] MEDS: Enoxaparin Inj 40 MG/0.4 ML Syringe SQ SCH (08:09)
[2018-04-04] MEDS: Aspirin 325 MG Tablet PO SCH (08:10)
[2018-04-04] MEDS: Loratadine 10 MG Tablet PO SCH (08:10)
[2018-04-04] MEDS: Morphine Inj 4 MG/ML Vial IV.PUSH PRN (08:11)
[2018-04-04] MEDS ORDERED: Morphine Inj 4 MG/ML Vial IV.PUSH PRN (09:49)
--- NOTE | 2018-04-04 10:29 | P.PNIM ---
Subjective Interval history: pt still with rlq pain. not vomiting. trying to eat. Physical Exam Vital signs: Last Vital Signs Temp 98.7 F 04/04/18 08:14 Pulse 61 04/04/18 08:29 Resp 18 04/04/18 08:14 BP 126/71 04/04/18 08:14 Pulse Ox 97 04/04/18 08:14 Narrative: lying in bed oriented no labored breathing heart reg lung cta abd lower quad tenderness worse on right lower quadrant. no rebound. bs ext no edema Results Labs CBC & Chem 7: 04/02/18 05:15 04/02/18 05:15 Assessment and Plan Plan Pt is 67 yo with metastatic nonsmall cell lung ca who progressed on nivolumab. She then completed 4cycles of taxotere and now on Ramucicumab last dose 03/25. 2 nights ago pt developed pain across her lower abdomen and she initially thought was gas. She did have a nml bowel movement after the pain started. She then began to vomit. no blood in stool or vomit. Denies any fever or chills. Yesterday had ivf and anti emetics in oncology clinic but no improvement so admitted for evaluation. CT a/p showed colitis. 1. stool studies enteric pathogens/cdiff all negative. 2. GI consulted to evaluate colitis. c-scope said to have normal appearance to mucosa. ?gastroenteritis considered 3. ivf stopped.. diet advanced but not eating much 4. prn antiemetics 5. stop eliquis. pt says she only takes asa due to epistaxis with eliquis 6. claritin for post nasal gtt causing some nausea 7. pt and I discussed ischemic vs infectious colitis. We discussed the abnormal appearance of her CT especially in right lower quadrant, and the normal appearing c scope. Given the ongoing pain, fever, abnormal appearing CT scan we decided to proceed with a short course of levaquin flagyl that would hopefully cover any bacterial infectious colitis or translocated bacteria into the colon wall. adjust prn pain meds. ambulate. monitor for fever and any sx improvement. if no improvements ?re-image Progress Note: Quality VTE Deep Vein Thrombosis/Pulmonary Embolism Present on Admission: No
[2018-04-04] MEDS: Levofloxacin 500 mg Premix Inj 500 MG/100 ML PIGGYBACK IV.SIG SCH (16:52)
--- NOTE | 2018-04-04 17:38 | P.PNONC ---
Subjective Interval history: Patient was seen earlier in the morning. She had a dose of morphine for her right lower quadrant pain which persists. She has no nausea or vomiting. She feels marginally better in terms of her pain. Objective Vital Signs/Intake & Output: Vital Signs 04/03/18 20:00 04/04/18 00:00 04/04/18 04:00 Temperature 98.3 F 98.6 F 98 F Pulse Rate 89 59 L 63 Respiratory Rate 20 18 20 Blood Pressure 131/67 134/81 127/74 Pulse Oximetry 97 97 04/04/18 08:14 04/04/18 08:29 04/04/18 12:13 Temperature 98.7 F 98.2 F Pulse Rate 61 61 61 Respiratory Rate 18 16 Blood Pressure 126/71 117/72 Pulse Oximetry 97 97 04/04/18 16:55 Temperature 99.1 F Pulse Rate 62 Respiratory Rate 16 Blood Pressure 137/76 Pulse Oximetry 96 Intake & Output 04/03/18 04/04/18 04/04/18 18:59 06:59 18:59 Intake Total 1830 / 1830 2340 / 2340 100 / 100 Balance 1830 / 1830 2340 / 2340 100 / 100 Weight 66.9 kg Intake: IV 1200 / 1200 2100 / 2100 100 / 100 D5W/Normal Saline Inj 1,000 ML 1000 / 1000 2000 / 2000 @ 75 mls/hr IV.CONT .[id number] [facility] Rx#:[id number] Levaquin 500 mg Premix Inj 500 100 / 100 mg In 100 ml @ 100 mls/hr IV. SIG Q24H [facility] Rx#:[id number] Flagyl 500 MG Inj 100 ML @ 100 100 / 100 100 / 100 100 / 100 mls/hr IV.SIG Q8H [facility] Rx#: [id number] Oral 480 / 480 240 / 240 Anesthesia Amount 150 / 150 Other: # Voids 3 2 Date of Last Bowel Movement 04/03/18 04/04/18 # Bowel Movements 1 2 Result Diagrams: 04/02/18 05:15 04/02/18 05:15 Laboratory Results: Laboratory Results - last 24 hr 04/03/18 22:09 POC Glucose 116 H Culture Results: Microbiology 04/02/18 18:48 Enteric Pathogens (PCR) - Final Stool No enteric pathogens detected by PCR (No Salmonella sp., Shigella sp., Campylobacter sp., Yersinia enterocolitica, Vibrio sp., Norovirus, or EHEC (Shiga Toxin 1 or Shiga Toxin 2) detected. Medications: Active Medications Generic Name Dose Route Start Last Admin Trade Name Freq PRN Reason Stop Dose Admin Acetaminophen 650 mg 04/01/18 20:33 04/02/18 12:05 Tylenol PO 650 mg Q4H PRN Administration HEADACHE Aspirin 325 mg 04/03/18 14:00 04/04/18 08:10 Aspirin PO 325 mg DAILY [facility] Administration Atorvastatin Calcium 40 mg 04/02/18 09:00 04/04/18 08:11 Lipitor PO 40 mg DAILY [facility] Administration Enoxaparin Sodium 40 mg 04/03/18 10:30 04/04/18 08:09 Lovenox Inj SQ 40 mg DAILY [facility] Administration Famotidine 20 mg 04/02/18 21:00 04/03/18 22:17 Pepcid PO 20 mg HS [facility] Administration Levofloxacin/Dextrose 500 mg in 100 mls @ 100 mls/hr 04/03/18 15:00 04/04/18 16:52 Levaquin 500 Mg Premix Inj IV.SIG 100 mls/hr Q24H [facility] Administration Metronidazole/Sodium Chloride 100 mls @ 100 mls/hr 04/03/18 16:00 04/04/18 13 :21 Flagyl 500 Mg Inj IV.SIG Infused Q8H [facility] Infusion Loratadine 10 mg 04/02/18 09:00 04/04/18 08:10 Claritin PO 10 mg DAILY [facility] Administration Lorazepam 0.5 mg 04/01/18 17:24 04/02/18 21:44 Ativan Inj IV.PUSH 0.5 mg DAILY PRN Administration ANXIETY Losartan Potassium 25 mg 04/02/18 09:00 04/04/18 08:10 Cozaar PO 25 mg DAILY [facility] Administration Ondansetron HCl 4 mg 04/01/18 13:43 04/03/18 08:50 Zofran Inj IV.PUSH 4 mg Q6H PRN Administration nausea/vomiting Oxycodone HCl 5 mg 04/04/18 09:45 04/04/18 12:23 Roxicodone PO 5 mg Q4H PRN Administration PAIN SCALE 3 TO 5 Objective Remarks: GENERAL: Well-nourished, well-developed patient. SKIN: Warm and dry. HEAD: Normocephalic. Alopecia. EYES: No scleral icterus. No injection or drainage. NECK: Supple, trachea midline. No JVD or lymphadenopathy. LYMPHATIC: No adenopathy. CARDIOVASCULAR: Regular rate and rhythm without murmurs. RESPIRATORY: Breath sounds equal bilaterally. No accessory muscle use. GASTROINTESTINAL: Abdomen soft, right lower quadrant tender, nondistended. EXTREMITIES: No cyanosis, or edema. MUSCULOSKELETAL: Adequate muscle tone. NEUROLOGICAL: No obvious focal deficit. Awake, alert, and oriented x3. PSYCHIATRIC: Appropriate mood and affect; insight and judgment normal. Assessment/Plan - Plan Ms. Jones is a pleasant 67-year-old female with metastatic non-small cell lung cancer. She is currently on ramucirumab maintenance after completing 4 cycles of Taxotere. She was admitted for intractable nausea and vomiting. CT scan abdomen and pelvis showed inflammation in the right side of the colon. Colonoscopy was negative. She had low-grade fevers. 1. Advance diet as tolerated 2. Empiric antibiotic therapy, monitor fever 3. Moderate her pain symptoms and response to empiric antibiotic 4. DVT prophylaxis continue 5. Ramicirumab on hold until resolution of abdominal pain. 6. DC IV fluid, encourage p.o. fluid intake.
[2018-04-04] MEDS: Famotidine 20 MG Tablet PO SCH (21:29)
[2018-04-05] MEDS: Enoxaparin Inj 40 MG/0.4 ML Syringe SQ SCH (08:19)
[2018-04-05] MEDS: Aspirin 325 MG Tablet PO SCH (08:19)
[2018-04-05] MEDS: Loratadine 10 MG Tablet PO SCH (08:20)
--- NOTE | 2018-04-05 09:31 | P.PNIM ---
Subjective Interval history: not eating much. pain not connected to eating. poor appetite. still complains of constant pain right lower quadrant. liquid stool. Physical Exam Vital signs: Last Vital Signs Temp 97.8 F 04/05/18 08:16 Pulse 65 04/05/18 08:16 Resp 20 04/05/18 08:16 BP 132/85 04/05/18 08:16 Pulse Ox 96 04/05/18 08:16 Narrative: lying in bed oriented no labored breathing heart reg lung cta abd lower quad tenderness worse on right lower quadrant. no rebound. bs ext no edema Results Labs CBC & Chem 7: 04/02/18 05:15 04/02/18 05:15 Assessment and Plan Plan Pt is 67 yo with metastatic nonsmall cell lung ca who progressed on nivolumab. She then completed 4cycles of taxotere and now on Ramucicumab last dose 03/25. 2 nights ago pt developed pain across her lower abdomen and she initially thought was gas. She did have a nml bowel movement after the pain started. She then began to vomit. no blood in stool or vomit. Denies any fever or chills. Yesterday had ivf and anti emetics in oncology clinic but no improvement so admitted for evaluation. CT a/p showed colitis. 1. stool studies enteric pathogens/cdiff all negative. 2. GI consulted to evaluate colitis. c-scope said to have normal appearance to mucosa. ?gastroenteritis considered 3. ivf stopped.. diet advanced but not eating much 4. prn antiemetics 5. stopped eliquis. pt says she only takes asa due to epistaxis with eliquis 6. claritin for post nasal gtt causing some nausea 7. pt and I discussed ischemic vs infectious colitis. We discussed the abnormal appearance of her CT especially in right lower quadrant, and the normal appearing c scope. Given the ongoing pain, fever, abnormal appearing CT scan we decided to proceed with a short course of levaquin flagyl that would hopefully cover any bacterial infectious colitis or translocated bacteria into the colon wall. -I reviewed with her the CT images today. She is still having pain and requiring oxycodone. will try 3 doses of solumedrol to see if any effect on her pain. If not then might need to order a new CT to see if any evolution of prior abnormality in right lower quadrant. Progress Note: Quality VTE Deep Vein Thrombosis/Pulmonary Embolism Present on Admission: No
[2018-04-05] MEDS ORDERED: MethylPREDNISolone Sod Succinate Inj 125 MG/2 ML Vial IV.PUSH ONE (10:00)
--- NOTE | 2018-04-05 11:05 | P.PNONC ---
Subjective Interval history: Afebrile Patient resting in bed no acute distress Reports she feels marginally improved but still would like to get to the bottom of what is causing her pain Very poor appetite Noted Dr. Sanchez's plan to give trial of steroids and reassess Objective Vital Signs/Intake & Output: Vital Signs 04/04/18 12:13 04/04/18 16:55 04/04/18 20:00 Temperature 98.2 F 99.1 F 99.1 F Pulse Rate 61 62 64 Respiratory Rate 16 16 16 Blood Pressure 117/72 137/76 132/78 Pulse Oximetry 97 96 94 L 04/05/18 00:05 04/05/18 00:17 04/05/18 04:11 Temperature 98.1 F 99.0 F Pulse Rate 65 64 60 Respiratory Rate 16 16 Blood Pressure 144/78 H 139/78 Pulse Oximetry 94 L 94 L 04/05/18 04:46 04/05/18 08:00 04/05/18 08:16 Temperature 97.8 F Pulse Rate 66 71 65 Respiratory Rate 20 Blood Pressure 132/85 Pulse Oximetry 96 04/05/18 10:00 Temperature Pulse Rate 71 Respiratory Rate Blood Pressure Pulse Oximetry Intake & Output 04/04/18 04/05/18 04/05/18 18:59 06:59 18:59 Intake Total 100 / 100 540 / 540 100 / 100 Output Total 575 / 575 Balance 100 / 100 -35 / -35 100 / 100 Weight 149 lb 11.102 oz Intake: IV 100 / 100 300 / 300 100 / 100 Levaquin 500 mg Premix Inj 500 100 / 100 mg In 100 ml @ 100 mls/hr IV. SIG Q24H [facility] Rx#:[id number] Flagyl 500 MG Inj 100 ML @ 100 100 / 100 200 / 200 100 / 100 mls/hr IV.SIG Q8H [facility] Rx#: [id number] Oral 240 / 240 Output: Urine 575 / 575 Other: Date of Last Bowel Movement 04/03/18 Result Diagrams: 04/02/18 05:15 04/02/18 05:15 Culture Results: Microbiology 04/02/18 18:48 Enteric Pathogens (PCR) - Final Stool No enteric pathogens detected by PCR (No Salmonella sp., Shigella sp., Campylobacter sp., Yersinia enterocolitica, Vibrio sp., Norovirus, or EHEC (Shiga Toxin 1 or Shiga Toxin 2) detected. Medications: Active Medications Generic Name Dose Route Start Last Admin Trade Name Freq PRN Reason Stop Dose Admin Acetaminophen 650 mg 04/01/18 20:33 04/02/18 12:05 Tylenol PO 650 mg Q4H PRN Administration HEADACHE Aspirin 325 mg 04/03/18 14:00 04/05/18 08:19 Aspirin PO 325 mg DAILY [facility] Administration Atorvastatin Calcium 40 mg 04/02/18 09:00 04/05/18 08:20 Lipitor PO 40 mg DAILY [facility] Administration Enoxaparin Sodium 40 mg 04/03/18 10:30 04/05/18 08:19 Lovenox Inj SQ 40 mg DAILY [facility] Administration Famotidine 20 mg 04/02/18 21:00 04/04/18 21:29 Pepcid PO 20 mg HS [facility] Administration Levofloxacin/Dextrose 500 mg in 100 mls @ 100 mls/hr 04/03/18 15:00 04/04/18 19:20 Levaquin 500 Mg Premix Inj IV.SIG Infused Q24H [facility] Infusion Metronidazole/Sodium Chloride 100 mls @ 100 mls/hr 04/03/18 16:00 04/05/18 10 :24 Flagyl 500 Mg Inj IV.SIG Infused Q8H [facility] Infusion Loratadine 10 mg 04/02/18 09:00 04/05/18 08:20 Claritin PO 10 mg DAILY [facility] Administration Lorazepam 0.5 mg 04/01/18 17:24 04/02/18 21:44 Ativan Inj IV.PUSH 0.5 mg DAILY PRN Administration ANXIETY Losartan Potassium 25 mg 04/02/18 09:00 04/05/18 08:20 Cozaar PO 25 mg DAILY [facility] Administration Ondansetron HCl 4 mg 04/01/18 13:43 04/03/18 08:50 Zofran Inj IV.PUSH 4 mg Q6H PRN Administration nausea/vomiting Oxycodone HCl 5 mg 04/04/18 09:45 04/05/18 00:29 Roxicodone PO 5 mg Q4H PRN Administration PAIN SCALE 3 TO 5 Objective Remarks: GENERAL: Chronically ill-appearing female patient, in no acute distress. SKIN: Warm and dry.+ Alopecia. HEAD: Normocephalic. EYES: No scleral icterus. No injection or drainage. NECK: Supple, trachea midline. CARDIOVASCULAR: + S1/S2 without murmurs. RESPIRATORY: Posterior breath sounds clear, equal bilaterally. No accessory muscle use. GASTROINTESTINAL: Abdomen soft, tender RUQ, RLQ, nondistended. EXTREMITIES: No cyanosis, or edema. MUSCULOSKELETAL: Adequate muscle tone. NEUROLOGICAL: No obvious focal deficit. Awake, alert, and oriented x3. Assessment/Plan - Plan Ms. Jones is a pleasant 67-year-old female with metastatic non-small cell lung cancer. She is currently on ramucirumab maintenance after completing 4 cycles of Taxotere. She was admitted for intractable nausea and vomiting. CT scan abdomen and pelvis showed inflammation in the right side of the colon. Colonoscopy was negative. She had low-grade fevers. 1. Encourage p.o. fluid intake. Continue Levaquin and Flagyl. 2. Agree with plan to trial steroids and reassess imaging if pain not improved 3. Continue supportive care - Attending Statement The exam, history, and the medical decision-making described in the above note were completed with the assistance of the mid-level provider. I reviewed and agree with the findings presented. I attest that I had a [id number] encounter with the patient on the same day, and personally performed and documented my assessment and findings in the medical record. Feels remarkably better with empiric steroids. Pain is resolved. She was able to eat. We discussed plans to continue steroids. We will follow-up in clinic when discharged. Not certain how Ramicirumab is related to the acute symptoms and the changes seen on CT scan. Plan to follow-up with outpatient imaging CT scan of the abdomen and pelvis with contrast. Anticipate discharge tomorrow on steroids empirically. We will continue to titrate as outpatient.
[2018-04-05] MEDS: Levofloxacin 500 mg Premix Inj 500 MG/100 ML PIGGYBACK IV.SIG SCH (14:43)
[2018-04-05] MEDS: Famotidine 20 MG Tablet PO SCH (20:48)
[2018-04-05] MEDS: MethylPREDNISolone Sod Succinate Inj 125 MG/2 ML Vial IV.PUSH SCH ×2 (22:04→23:08)
[2018-04-06 06:48] LABS: Baso % (Auto) 0.1 % (0.0-2.0); Hemoglobin 11.4 gm/dL (11.6-15.3); Lymph # (Auto) 1.1 th/mm3 (1.0-4.8); Lymph % (Auto) 12.3 % (9.0-44.0); Mean Corpuscular HGB Conc 33.5 % (32.0-36.0); Mean Corpuscular Hemoglobin 29.7 pg (27.0-34.0); Mean Corpuscular Volume 88.8 fL (80.0-100.0); Mean Platelet Volume 7.2 fL (7.0-11.0); Mono # (Auto) 0.5 th/mm3 (0.0-0.9); Mono % (Auto) 5.2 % (0.0-8.0); Neut # (Auto) 7.4 th/mm3 (1.8-7.7); Neut % (Auto) 82.4 % (16.0-70.0); Platelet Count 239 th/mm3 (150-450); Red Blood Count 3.83 mil/mm3 (4.00-5.30); Red Cell Distribution Width 18.1 % (11.6-17.2)
[2018-04-06 07:17] LABS: Albumin 2.5 g/dL (3.4-5.0); Anion Gap 9 meq/L (5-15); Aspartate Aminotransferase 15 U/L (15-37); Blood Urea Nitrogen 13 mg/dL (7-18); Calcium 8.3 mg/dL (8.5-10.1); Carbon Dioxide 26.5 meq/L (21.0-32.0); Chloride 107 meq/L (98-107); Glomerular Filtration Rate Greater Than 89 mL/min (>89); Glucose,Random 147 mg/dL (74-106); Potassium 3.3 meq/L (3.5-5.1); Sodium 142 meq/L (136-145)
[2018-04-06 07:18] LABS: Alanine Aminotransferase 23 U/L (10-53)
[2018-04-06 07:20] LABS: Alkaline Phosphatase 178 U/L (45-117); Total Protein 6.5 g/dL (6.4-8.2)
[2018-04-06] MEDS: Aspirin 325 MG Tablet PO SCH (09:42)
[2018-04-06] MEDS: Loratadine 10 MG Tablet PO SCH (09:42)
[2018-04-06] MEDS: Enoxaparin Inj 40 MG/0.4 ML Syringe SQ SCH (09:42)
--- NOTE | 2018-04-06 10:01 | P.PNIM ---
Subjective Interval history: sitting in chair happy. no pain. eating. wants to go home. Physical Exam Vital signs: Last Vital Signs Temp 98.3 F 04/06/18 08:17 Pulse 73 04/06/18 08:17 Resp 16 04/06/18 08:17 BP 150/84 H 04/06/18 08:17 Pulse Ox 99 04/06/18 08:17 Narrative: heart reg lung cta abd s/nt ext no edema Results Labs CBC & Chem 7: 04/06/18 06:00 04/06/18 06:00 Assessment and Plan Plan Pt is 67 yo with metastatic nonsmall cell lung ca who progressed on nivolumab. She then completed 4cycles of taxotere and now on Ramucicumab last dose 03/25. 2 nights ago pt developed pain across her lower abdomen and she initially thought was gas. She did have a nml bowel movement after the pain started. She then began to vomit. no blood in stool or vomit. Denies any fever or chills. Yesterday had ivf and anti emetics in oncology clinic but no improvement so admitted for evaluation. CT a/p showed colitis. 1. stool studies enteric pathogens/cdiff all negative. 2. GI consulted to evaluate colitis. c-scope said to have normal appearance to mucosa. ?gastroenteritis considered 3. ivf stopped.. diet advanced but not eating much 4. prn antiemetics 5. stopped eliquis. pt says she only takes asa due to epistaxis with eliquis 6. claritin for post nasal gtt causing some nausea 7. pt and I discussed ischemic vs infectious colitis. We discussed the abnormal appearance of her CT especially in right lower quadrant, and the normal appearing c scope. Given the ongoing pain, fever, abnormal appearing CT scan we decided to proceed with a short course of levaquin flagyl that would hopefully cover any bacterial infectious colitis or translocated bacteria into the colon wall. -I reviewed with her the CT images . Pt pain resolved with solumedrol overnight will dc and complete the abx course and short prednisone taper. Progress Note: Quality VTE Deep Vein Thrombosis/Pulmonary Embolism Present on Admission: No
== END 2018-04-06 11:28 | disposition home or self-care (01) ==
LOC: HCIN 12:26
PROVIDERS: ADMIT Internal Medicine Hematology & Oncology; ATTEND Internal Medicine Hematology & Oncology
PROC: COLONOS (2018-04-03 08:12)